=== PATIENT | female | born 1970 | race Caucasian/White ===

== ENCOUNTER → 2016-12-23 | Outpatient (CLI) | payer OTHER | END | disposition home or self-care (01) | LOC: YCFC.O 10:27 | PROVIDERS: ATTEND Nurse Practitioner Family | DX: E10.9 Type 1 diabetes mellitus without complications (principal) ==

== ENCOUNTER → 2017-11-23 | Outpatient (CLI) | payer OTHER | LOC: YCFC.O 09:34 | PROVIDERS: ATTEND Nurse Practitioner Family | DX: E10.9 Type 1 diabetes mellitus without complications (principal); I10 Essential (primary) hypertension; D64.9 Anemia, unspecified; Z13.220 Encounter for screening for lipoid disorders ==

== ENCOUNTER → 2018-01-01 | Outpatient (CLI) | payer OTHER ==
--- NOTE | 2018-01-01 11:32 | RAD ---
EXAM DESCRIPTION: Ankle,Right 3 Views CLINICAL HISTORY: 48 years Female, PRESSURE ULCER OF RIGHT ANKLE COMPARISON: January 23, 2014 FINDINGS: The distal right fibula is surgically absent. There is a plate and screw fixation device over the lateral aspect of the right tibia distally. Several of the screws appear fractured with backing out of several of the screws in the calcaneus. There is diffuse sclerosis and fragmentation of the calcaneus and possibly also the talus, only partially visualized. The subtalar and tibiotalar joints are not well visualized. No soft tissue gas is seen. IMPRESSION: Postoperative changes in the right ankle including a plate and screw fixation device over the right tibia and hindfoot laterally. Fragmentation and collapse of the right hindfoot involving the calcaneus, talus and tibial plafond is noted with multiple fractured orthopedic screws. Differential considerations include AVN or infection. Orthopedic consultation is recommended. The ordering practitioner was paged by me through the radiology clinical services consultant regarding these findings at the time of this dictation. Electronically signed by: Giuliano Hutton MD 01/01/2018 11:31 AM CDT
== END ==
LOC: YCFC.O 10:11
PROVIDERS: ATTEND Nurse Practitioner Family
DX: L89.513 Pressure ulcer of right ankle, stage 3 (principal)

== ENCOUNTER 2018-05-30 08:55 | Emergency (ER) | payer OTHER ==
--- NOTE | 2018-05-30 09:19 | ED.PDOC ---
History of Present Illness - General Chief Complaint: Diabetic Complaint Stated Complaint: Vomiting x 7d, slow to respond Time Seen by Provider: 05/30/18 09:18 Source: patient, EMS Exam Limitations: no limitations - History of Present Illness Initial Comments: Lorene Del Angel 48 y/o female with history of DM1 brought by EMS after they were called up by patient family after they visited her at home was found to be weak and lethargic noted to be incontinent of urine.Patient with weak voice stated had intermittent vomiting for the last one week is working out of town. Timing/Duration: other - see hpi Severity: moderate Improving Factors: nothing Worsening Factors: nothing Associated Symptoms: nausea/vomiting Allergies/Adverse Reactions: Allergies Penicillins Allergy (Intermediate, Verified 01/15/14 00:05) Home Medications: Ambulatory Orders HYDROcodone 5MG/APAP 325MG [[place] 5/325] 1 ea PO .Q6 PRN #10 tab 01/15/14 Review of Systems - Review of Systems Constitutional: States: see HPI, weakness EENTM: States: no symptoms reported Respiratory: States: no symptoms reported Cardiology: States: no symptoms reported Gastrointestinal/Abdominal: States: see HPI Genitourinary: States: no symptoms reported Musculoskeletal: States: no symptoms reported Skin: States: no symptoms reported Neurological: States: no symptoms reported Endocrine: States: no symptoms reported Hematologic/Lymphatic: States: no symptoms reported Past Medical History (General) - Patient Medical History Hx Congestive Heart Failure: No Hx Diabetes: Yes Hx MRSA: Yes - Foot 2010; Foot 2211 MRSA Source:: Wound Surgical History: other - foot surgery - Social History Hx Alcohol Use: No Hx Depression: No Feels Threatened In Home Enviroment: No Hx Physical Abuse: No Hx Emotional Abuse: No - Female History Patient : No Family Medical History - Family History Mother Hx Cardiac Disease: Yes - dad Hx Family Diabetes: Yes - multiple family members Hx Family Cancer: Yes - dad-lungs Physical Exam - Physical Exam General Appearance: No apparent distress, Lethargic Eye Exam: right normal, left other - blind left eye Ears, Nose, Throat: hearing grossly normal, normal ENT inspection, normal pharynx, other - dry oral mucosa Neck: non-tender, full range of motion, supple, normal inspection Respiratory: lungs clear, normal breath sounds, no respiratory distress Cardiovascular/Chest: normal peripheral pulses, no gallop, no murmur, tachycardia Peripheral Pulses: dorsalis pedis,right: 1+, dorsalis pedis,left: 1+ Gastrointestinal/Abdominal: soft, no organomegaly, no pulsatile mass, distended, tenderness - no peritoneal signs Back Exam: normal inspection Extremity: no pedal edema, no calf tenderness, other - 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 Skin Exam: normal color, warm/dry Progress - Progress Progress: 05/30/18 10:01 Vital Signs - 8 hr 05/30/18 08:55 Temperature 98.0 F Pulse Rate [ 122 H Apical] Respiratory 36 H Rate Blood Pressure 113/68 [Left Arm] O2 Sat by Pulse 97 Oximetry - Results/Orders Results/Orders: Vital Signs - 8 hr 05/30/18 05/30/18 05/30/18 08:55 09:45 10:55 Temperature 98.0 F Pulse Rate [ 122 H 118 H Apical] Respiratory 36 H 27 H 27 H Rate Blood Pressure 113/68 121/66 [Left Arm] O2 Sat by Pulse 97 95 Oximetry 05/30/18 05/30/18 10:57 11:19 Temperature Pulse Rate [ 109 H Apical] Respiratory 26 H 32 H Rate Blood Pressure 130/70 [Left Arm] O2 Sat by Pulse 100 Oximetry 05/30/18 09:30 EKG STAT 05/30/18 09:45 BLOOD CULTURE Stat 05/30/18 10:54 Capnography RTQ6 05/30/18 11:30 Insulin, Reg.(Human) [HumuLIN R] 250 units Sodium Chl 0.9% 250Ml (Georgette) [NS 250ml (GEORGETTE)] 247.5 ml IVPB Q12H 05/30/18 13:00 GLUCOSE,RANDOM Stat Laboratory Results - last 24 hr 05/30/18 05/30/18 05/30/18 09:19 09:27 09:27 WBC 14.6 H RBC 4.42 Hgb 13.3 Hct 43.6 MCV 98.6 MCH 30.0 MCHC 30.5 L RDW 15.7 H Plt Count 335 MPV 9.7 Absolute Neuts (auto) 12.70 H Absolute Lymphs (auto) 0.70 L Absolute Monos (auto) 1.20 H Absolute Eos (auto) 0.00 Absolute Basos (auto) 0.00 Neutrophils % 87.2 H Lymphocytes % 4.5 L Monocytes % 8.0 Eosinophils % 0.0 L Basophils % 0.3 PT 11.3 H INR 1.13 PTT (SP) 21.9 pCO2 32 pO2 117 H* HCO3 18.4 ABG pH 7.380 ABG O2 Saturation 53.4 L* ABG Base Excess -5.5 ABG Deoxyhemoglobin 45.4 H Oxyhemoglobin % 52.0 L Carboxyhemoglobin % 0.1 L Methemoglobin % Sat 2.5 H Calc Total Hemoglobin 8.7 L Sodium 146 H Potassium 5.8 H Chloride 104 Carbon Dioxide 22 Anion Gap 25.8 H BUN 105 H* Creatinine 2.52 H BUN/Creatinine Ratio 41.7 H Random Glucose 759 H* Serum Osmolality Not Reportable Lactic Acid 2.4 H* Uric Acid Calcium 13.0 H* Phosphorus Magnesium 3.1 H Total Bilirubin 1.3 H Direct Bilirubin 0.3 H Indirect Bilirubin 1.0 H AST 12 ALT 11 Alkaline Phosphatase 98 Creatine Kinase 29 CK-MB (CK-2) 0.6 CK-MB (CK-2) % Not Reportable Troponin I 0.02 Serum Total Protein 7.9 Albumin 3.1 L Globulin Albumin/Globulin Ratio Lipase 19 L Serum HCG, Qual Urine Color Urine Appearance Urine pH Ur Specific [place] Urine Protein Urine Glucose (UA) Urine Ketones Urine Blood Urine Nitrite Urine Bilirubin Urine Urobilinogen Ur Leukocyte Esterase Urine RBC Urine WBC Ur Epithelial Cells Urine Bacteria Urine HCG, Qual Serum Ketones 05/30/18 05/30/18 05/30/18 09:27 09:32 09:54 WBC RBC Hgb Hct MCV MCH MCHC RDW Plt Count MPV Absolute Neuts (auto) Absolute Lymphs (auto) Absolute Monos (auto) Absolute Eos (auto) Absolute Basos (auto) Neutrophils % Lymphocytes % Monocytes % Eosinophils % Basophils % PT INR PTT (SP) pCO2 pO2 HCO3 ABG pH ABG O2 Saturation ABG Base Excess ABG Deoxyhemoglobin Oxyhemoglobin % Carboxyhemoglobin % Methemoglobin % Sat Calc Total Hemoglobin Sodium Potassium Chloride Carbon Dioxide Anion Gap BUN Creatinine BUN/Creatinine Ratio Random Glucose Serum Osmolality Lactic Acid Uric Acid 20.1 H* Calcium Phosphorus 3.5 Magnesium Total Bilirubin Direct Bilirubin Indirect Bilirubin AST ALT Alkaline Phosphatase Creatine Kinase CK-MB (CK-2) CK-MB (CK-2) % Troponin I Serum Total Protein Albumin Globulin Albumin/Globulin Ratio Lipase Serum HCG, Qual Cancelled Urine Color Yellow Urine Appearance Clear Urine pH 5.5 Ur Specific [place] 1.015 Urine Protein 30 Urine Glucose (UA) >=1000 H Urine Ketones 40 H Urine Blood Large H Urine Nitrite Negative Urine Bilirubin Negative Urine Urobilinogen 0.2 Ur Leukocyte Esterase Negative Urine RBC 5-10 H Urine WBC 0 Ur Epithelial Cells 0 Urine Bacteria Rare Urine HCG, Qual Negative Serum Ketones 05/30/18 05/30/18 05/30/18 11:14 11:40 11:54 WBC RBC Hgb Hct MCV MCH MCHC RDW Plt Count MPV Absolute Neuts (auto) Absolute Lymphs (auto) Absolute Monos (auto) Absolute Eos (auto) Absolute Basos (auto) Neutrophils % Lymphocytes % Monocytes % Eosinophils % Basophils % PT INR PTT (SP) pCO2 pO2 HCO3 ABG pH ABG O2 Saturation ABG Base Excess ABG Deoxyhemoglobin Oxyhemoglobin % Carboxyhemoglobin % Methemoglobin % Sat Calc Total Hemoglobin Sodium 150 H Potassium 5.0 Chloride 112 H Carbon Dioxide 21 Anion Gap 22.0 H BUN 94 H Creatinine 2.36 H BUN/Creatinine Ratio 39.8 H Random Glucose 653 H* 653 H* Serum Osmolality 358.4 H* Lactic Acid Uric Acid Calcium 12.1 H* Phosphorus Magnesium Total Bilirubin 1.3 H Direct Bilirubin Indirect Bilirubin AST 7 L D ALT 9 L Alkaline Phosphatase 82 Creatine Kinase CK-MB (CK-2) CK-MB (CK-2) % Troponin I Serum Total Protein 6.7 Albumin 2.7 L Globulin 4.0 H Albumin/Globulin Ratio 0.7 L Lipase Serum HCG, Qual Urine Color Urine Appearance Urine pH Ur Specific [place] Urine Protein Urine Glucose (UA) Urine Ketones Urine Blood Urine Nitrite Urine Bilirubin Urine Urobilinogen Ur Leukocyte Esterase Urine RBC Urine WBC Ur Epithelial Cells Urine Bacteria Urine HCG, Qual Serum Ketones Small 05/30/18 12:26 WBC RBC Hgb Hct MCV MCH MCHC RDW Plt Count MPV Absolute Neuts (auto) Absolute Lymphs (auto) Absolute Monos (auto) Absolute Eos (auto) Absolute Basos (auto) Neutrophils % Lymphocytes % Monocytes % Eosinophils % Basophils % PT INR PTT (SP) pCO2 pO2 HCO3 ABG pH ABG O2 Saturation ABG Base Excess ABG Deoxyhemoglobin Oxyhemoglobin % Carboxyhemoglobin % Methemoglobin % Sat Calc Total Hemoglobin Sodium Potassium Chloride Carbon Dioxide Anion Gap BUN Creatinine BUN/Creatinine Ratio Random Glucose Serum Osmolality Lactic Acid 1.2 Uric Acid Calcium Phosphorus Magnesium Total Bilirubin Direct Bilirubin Indirect Bilirubin AST ALT Alkaline Phosphatase Creatine Kinase CK-MB (CK-2) CK-MB (CK-2) % Troponin I Serum Total Protein Albumin Globulin Albumin/Globulin Ratio Lipase Serum HCG, Qual Urine Color Urine Appearance Urine pH Ur Specific [place] Urine Protein Urine Glucose (UA) Urine Ketones Urine Blood Urine Nitrite Urine Bilirubin Urine Urobilinogen Ur Leukocyte Esterase Urine RBC Urine WBC Ur Epithelial Cells Urine Bacteria Urine HCG, Qual Serum Ketones - EKG/XRAY/CT EKG: Sinus, Tachy, no ST T wave changes Comments: HR-117 XRAY: foot right-osteopenia ? osteomyelitis - no acute abnormalities CT Ordered: Yes - abd/p-no acuteabnormalities Departure - Departure Clinical Impression: Dehydration with hypernatremia, Hypercalcemia Nausea & vomiting Qualifiers: Vomiting type: unspecified Vomiting Intractability: non-intractable Qualified Code(s): R11.2 - Nausea with vomiting, unspecified Acute renal failure (ARF) Qualifiers: Acute renal failure type: unspecified Qualified Code(s): N17.9 - Acute kidney failure, unspecified Diabetes Qualifiers: Diabetes mellitus type: type 1 Diabetes mellitus complication status: with kidney complications Diabetes mellitus complication detail: with other kidney complication Qualified Code(s): E10.29 - Type 1 diabetes mellitus with other diabetic kidney complication Time of Disposition: 13:33 Disposition: Transfer to Hospital Condition: Fair Departure Forms: Patient Portal Self Enrollment Referrals: Bita Veloz NP [Primary Care Provider] - 1-2 Weeks Home Medications: Ambulatory Orders HYDROcodone 5MG/APAP 325MG [[place] 5/325] 1 ea PO .Q6 PRN #10 tab 01/15/14 Transfer to Outside Facility - Transfer Information Accepting Provider:: [place]/Mariusz GARCIA Md Accepting Facility: [facility] Reason for Transfer: required specialist not available - physical education specialist
[2018-05-30] MEDS ORDERED: SODIUM CHLORIDE 0.9% 1000ML 1,000 ML ONE (10:22)
[2018-05-30] MEDS ORDERED: SODIUM CHLORIDE 0.9% 1000ML 1,000 ML IVS ONE ×3 (10:27→10:28)
--- NOTE | 2018-05-30 11:03 | RAD ---
EXAM DESCRIPTION: Chest,1 View CLINICAL HISTORY: lethargy COMPARISON: None. FINDINGS: Cardiac silhouette is within normal limits. There is no focal parenchymal or pleural disease. Visualized osseous structures are within normal limits. IMPRESSION: No evidence of acute cardiopulmonary disease. Electronically signed by: Markus Rajput 05/30/2018 11:02 AM [facility]
--- NOTE | 2018-05-30 11:06 | RAD ---
EXAM DESCRIPTION: Foot,Right 2 Views CLINICAL HISTORY: lethargy COMPARISON: None FINDINGS: 2 view(s) submitted. There is diffuse osteopenia. Extensive postsurgical changes and hardware are present. Two of the surgical screws have the proximal threads partially exposed. Clinical correlation with desired position of the screws is recommended. There is dysmorphology of the tarsal bones with regions of decreased attenuation and although this may reflect disuse osteopenia, the possibility of osteomyelitis is not entirely excluded radiographically. No acute fracture is seen. IMPRESSION: Partial exposure of the threads of two of the surgical screws and nonspecific lucencies of portions of the talus bones as described. Osteomyelitis is not entirely excluded. Clinical correlation is recommended. Electronically signed by: Markus Rajput 05/30/2018 11:05 AM [facility]
--- NOTE | 2018-05-30 11:18 | CT ---
EXAM DESCRIPTION: Abdoment/Pelvis w/o Contrast CLINICAL HISTORY: abdominal distention COMPARISON: None Available. TECHNIQUE: Contiguous axial images of the abdomen and pelvis were obtained followed by reconstruction images. This exam was performed according to our departmental dose-optimization program, which includes automated exposure control, adjustment of the mA and/or kV according to patient size and/or use of iterative reconstruction technique. FINDINGS: There is a 2 mm nonobstructive right renal stone. Right renal collecting system is mildly enlarged but no stone is seen in the right ureter. Perez catheter is in the urinary bladder which is collapsed. Punctate calcification in the spleen could be due to prior granulomatous infection. There is mild anasarca and mild enlargement of inguinal lymph nodes. Trace fluid is in the pelvis. There is mild diffuse soft tissue stranding of the mesentery. There are probable postsurgical changes at the GE junction. The gallbladder is unremarkable by CT criteria. Adrenal glands are within normal limits. Aorta is of normal caliber and tapering. There is no free fluid in the abdomen or pelvis. There is no bowel obstruction. The appendix is within normal limits. There is no pericecal inflammation. IMPRESSION: No clear etiology for abdominal distention is seen. No evidence of bowel obstruction or bowel wall edema. Small amount of fluid in the pelvis and anasarca with mild soft tissue stranding of the mesentery could reflect inflammation or other etiologies such as hypoproteinemia. Clinical correlation will be helpful. Electronically signed by: Markus Rajput 05/30/2018 11:17 AM [facility]
[2018-05-30] MEDS ORDERED: INSULIN, REG.(HUMAN) 250 UNITS in SODIUM CHL 0.9% 250ML (AVIVA) 247.5 ML IVPB SCH ×2 (11:30)
[2018-05-30] MEDS ORDERED: INSULIN, REG.(HUMAN) 100 U/ML VIAL ONE (11:46)
[2018-05-30] MEDS ORDERED: SODIUM CHL 0.9% 250ML (AVIVA) 250 ML IVPB ONE (11:46)
[2018-05-30 14:04] VITALS: BP 109/59; TEMP 97.8; O2SAT 99
== END 2018-05-30 14:19 | disposition short-term general hospital (02) ==
LOC: ER 08:55
DX: E10.29 Type 1 diabetes mellitus with other diabetic kidney complication (principal); N17.9 Acute kidney failure, unspecified; R11.2 Nausea with vomiting, unspecified; E86.0 Dehydration; E87.0 Hyperosmolality and hypernatremia; E83.52 Hypercalcemia; Z88.0 Allergy status to penicillin
CPT/HCPCS: 36415; 36600; 71045; 73620; 74176; 80048; 80053; 80076; 81001; 81025; 82009; 82550; 82553; 82803; 82805; 82947; 83605; 83690; 84100; 84484; 84550; 85025; 85610; 85730; 87040; 93005; 94770; J7030

== ENCOUNTER 2018-06-21 09:53 | Emergency (ER) | payer OTHER ==
[2018-06-21] MEDS ORDERED: NALOXONE HCL INJ 1 MG/ML SYG IV ONE (09:58)
[2018-06-21] MEDS ORDERED: NALOXONE HCL INJ 1 MG/ML SYG ONE (09:59)
[2018-06-21] MEDS ORDERED: SUCCINYLCHOLINE CHLORIDE 200 MG/10 ML VIAL ONE (10:01)
[2018-06-21] MEDS ORDERED: ROCURONIUM BROMIDE 10 MG/ML VIAL ONE (10:01)
[2018-06-21] MEDS ORDERED: ROCURONIUM BROMIDE 10 MG/ML VIAL IV ONE ×3 (10:08→11:35)
--- NOTE | 2018-06-21 10:36 | RAD ---
EXAM DESCRIPTION: Chest,1 View CLINICAL HISTORY: 48 years Female, intubation COMPARISON: Previous study May 30, 2018 TECHNIQUE: AP portable chest. FINDINGS: Heart size is large with increased pulmonary vascularity consistent with volume overload or congestive failure. No focal consolidating infiltrate to suggest pneumonia. Endotracheal tube tip is at the level of the clavicles approximately 4.2 cm above the lolis. Central line from the right upper extremity is present with tip low in the right heart approximately 5.5 cm below the expected location of the SVC-right atrial junction. No pulmonary mass or worrisome nodule. No pneumothorax or pleural effusion. Bones are unremarkable. In the upper abdomen, the stomach appears markedly distended. No NG tube is seen. IMPRESSION: Large heart with increased vascularity consistent with volume overload or congestive failure. Endotracheal tube tip at the level of clavicles. Distended stomach. Right central line tip low in the right heart. Electronically signed by: Syed Caldera MD 06/21/2018 10:34 AM [facility]
[2018-06-21 11:11] VITALS: O2SAT 99
--- NOTE | 2018-06-21 11:30 | ED.PDOC ---
History of Present Illness - General Chief Complaint: Diabetic Complaint Stated Complaint: Unresponsive, low BS Time Seen by Provider: 06/21/18 10:31 Source: family, EMS Exam Limitations: clinical condition - History of Present Illness Initial Comments: Patient presents by EMS unresponsive. A family member found her at home. It is unknown how long she had been down. She is IDDM and her FSBG was in the 300s upon arrival by EMS. It was 161 here. She is currently being treated for RLE "infection" that the family thinks was "in the bone". Unknown antibiotic. She was in the ICU last week for the infection. No other history is available. Timing/Duration: unsure Severity: severe Improving Factors: nothing Worsening Factors: nothing Associated Symptoms: other - see hpi Allergies/Adverse Reactions: Allergies Penicillins Allergy (Intermediate, Verified 01/15/14 00:05) Home Medications: Ambulatory Orders HYDROcodone 5MG/APAP 325MG [[place] 5/325] 1 ea PO .Q6 PRN #10 tab 01/15/14 Ferrous Sulfate [Iron] 65 mg PO DAILY 06/21/18 Ondansetron HCl 4 mg PO Q8H PRN 06/21/18 Ranitidine HCl 150 mg PO BID 06/21/18 Verapamil HCl [Verapamil Hydrochloride] 240 mg PO DAILY 06/21/18 Review of Systems - Review of Systems Unable to Obtain Due To: condition, intubated Past Medical History (General) - Patient Medical History Hx Stroke: No Hx Congestive Heart Failure: No Hx Hypertension: Yes Hx Thyroid Disease: No Hx Diabetes: Yes Hx MRSA: Yes - Foot 2010; Foot 2211 MRSA Source:: Wound - Vaccination History Hx Influenza Vaccination: No Hx Pneumococcal Vaccination: No - Social History Hx Tobacco Use: No Hx Alcohol Use: No Hx Depression: No Hx Physical Abuse: No Hx Emotional Abuse: No - Female History Patient : No Family Medical History - Family History Mother Family History: Unknown Hx Cardiac Disease: Yes - dad Hx Family Diabetes: Yes - multiple family members Hx Family Cancer: Yes - dad-lungs Physical Exam - Physical Exam General Appearance: Other - UNRESPONSIVE Eye Exam: right other - sluggisn, left abnormal pupil - non-reactive Ears, Nose, Throat: normal ENT inspection Neck: non-tender, full range of motion, supple Respiratory: lungs clear, normal breath sounds Cardiovascular/Chest: normal peripheral pulses, tachycardia Gastrointestinal/Abdominal: normal bowel sounds Neurologic: other - GCS 7 Skin Exam: normal color Progress - Progress Progress: 06/21/18 11:32 RSI initiated with 40 mg IV Rocuronium. 5 mg pushes used to maintain. Patient accepted for admission to [facility] by Dr. Denson. Vital signs stable upon leaving. Mildly tachycardic. Departure - Departure Clinical Impression: Unresponsive Disposition: Transfer to Hospital Condition: Serious Departure Forms: ED Discharge - Pt. Copy, Patient Portal Self Enrollment Activity: other - as per hospitalist Referrals: Bita Veloz NP [Primary Care Provider] - 1-2 Weeks Home Medications: Ambulatory Orders HYDROcodone 5MG/APAP 325MG [[place] 5/325] 1 ea PO .Q6 PRN #10 tab 01/15/14 Ferrous Sulfate [Iron] 65 mg PO DAILY 06/21/18 Ondansetron HCl 4 mg PO Q8H PRN 06/21/18 Ranitidine HCl 150 mg PO BID 06/21/18 Verapamil HCl [Verapamil Hydrochloride] 240 mg PO DAILY 06/21/18
[2018-06-21] MEDS ORDERED: SODIUM CHLORIDE 0.9% 1000ML 1,000 ML ONE (11:38)
[2018-06-21] MEDS ORDERED: SODIUM CHLORIDE 0.9% 1000ML 1,000 ML IVS ONE (11:40)
[2018-06-21 12:17] VITALS: BP 154/80; TEMP 96.9
== END 2018-06-21 12:00 | disposition short-term general hospital (02) ==
LOC: ER 09:53
DX: R40.20 Unspecified coma (principal); E11.9 Type 2 diabetes mellitus without complications; I10 Essential (primary) hypertension; Z88.0 Allergy status to penicillin; Z79.4 Long term (current) use of insulin
CPT/HCPCS: 36415; 36416; 36600; 71045; 80048; 81001; 82550; 82553; 82803; 82805; 82948; 84484; 85025; 85610; 85730; 93005; 94002; 94770; J2310; J7030

== ENCOUNTER 2018-06-30 18:11 | Inpatient (IN) | payer OTHER ==
[2018-06-30] MEDS ORDERED: KCL 20 MEQ/NS 1,000 ML IVS PRN (19:42)
[2018-06-30] MEDS ORDERED: INSULIN, REG.(HUMAN) 100 U/ML VIAL SUBCU ONE (19:43)
[2018-06-30] MEDS ORDERED: ONDANSETRON INJ 4 MG/2 ML VIAL IV ONE (20:45)
[2018-06-30] MEDS ORDERED: INSULIN DETEMIR 100 UNITS/ML PEN SUBCU ONE (22:34)
--- NOTE | 2018-06-30 22:34 | RAD ---
EXAM DESCRIPTION: Chest,1 View CLINICAL HISTORY: Altered mental status, edema COMPARISON: None Available. TECHNIQUE: Single upright portable AP view of the chest FINDINGS: Cardiac silhouette shows borderline cardiomegaly. Pulmonary vascularity is within normal limits. Lungs show no confluent infiltrates. Bilateral costophrenic angles are sharp. There is no pneumothorax. No acute osseous abnormality. IMPRESSION: 1. Borderline cardiomegaly without silvia congestive heart failure. 2. Lungs show no confluent infiltrates. Electronically signed by: Tavo Elam MD 06/30/2018 6:47 PM ONCOLOGY PHYSICIAN ASSISTANT
[2018-06-30] MEDS ORDERED: INSULIN, REG.(HUMAN) 250 UNITS in SODIUM CHL 0.9% 250ML (AVIVA) 247.5 ML IVPB SCH ×4 (23:00→23:56)
[2018-06-30] MEDS ORDERED: KCL 30MEQ/D5 1/2NS 1,000 ML IVS ONE (23:56)
[2018-07-01] MEDS ORDERED: MAGNESIUM SULFATE PREMIX 2GM 2 GM in PREMIX BAG 1 BAG IVPB ONE ×2 (03:21→09:24)
[2018-07-01] MEDS ORDERED: MAGNESIUM SULFATE PREMIX 2GM 50 ML IVPB ONE ×2 (03:33→10:43)
--- NOTE | 2018-07-01 03:50 | ED.PDOC ---
History of Present Illness - General Chief Complaint: Neuro Symptoms/Deficits Stated Complaint: confusion, dizzy Time Seen by Provider: 06/30/18 23:08 Source: patient Exam Limitations: clinical condition - History of Present Illness Initial Comments: The patient is a 48-year-old diabetic female presenting to the emergency room with significant delirium and anasarca. Duration of delirium, which seems to come and go is of uncertain duration. She was apparently having some confusion as far back as possibly a couple of weeks ago. The patient was actually just released from [facility] approximately 4-5 days ago. She had been sent there due to altered mental status with profound hypoglycemia and DKA after having been intubated. The patient had apparently already been taking some IV antibiotics and is continuing to take some IV antibiotics at home administered by herself and family for osteomyelitis of the right ankle that is ongoing in nature. Apparently she was lucid enough to be competent to check herself out of the hospital for 5 days ago [facility]. Since that time is uncertain how compliant she has been with her diabetes medicines or any of her other medicines. Apparently she came home from [facility] significantly swollen already. She has significant anasarca today and she is able to give some medical information reliably but other information is essentially unintelligible. It is doubtful that she has had her insulin appropriately administered for at least the last 2 days. Even as little as after a couple of hours of after arrival here the patient was trying to leave AGAINST MEDICAL ADVICE and had to be told by family that she was going to stay. It appeared based on records that they had actually wanted to keep her longer [facility]. Records from that stay also indicated they did extensive venous Doppler ultrasound due to swelling of the extremities, which were essentially negative. She additionally had had an echocardiogram there that was essentially negative. she also had a head CT there without contrast that was negative. based upon outside records she apparently does have a long-standing baseline sinus tachycardia. she does also convey that she is a patient of Dr. raymundo, and has an appointment scheduled with her in the near future. For the osteomyelitis she apparently takes IV meropenem and IV daptomycin. Timing/Duration: unsure Severity: severe Improving Factors: nothing Worsening Factors: nothing Associated Symptoms: loss of appetite, malaise, weakness Allergies/Adverse Reactions: Allergies Penicillins Allergy (Intermediate, Verified 01/15/14 00:05) Home Medications: Ambulatory Orders HYDROcodone 5MG/APAP 325MG [[place] 5/325] 1 ea PO .Q6 PRN #10 tab 01/15/14 Ferrous Sulfate [Iron] 65 mg PO DAILY 06/21/18 Ondansetron HCl 4 mg PO Q8H PRN 06/21/18 Ranitidine HCl 150 mg PO BID 06/21/18 Verapamil HCl [Verapamil Hydrochloride] 240 mg PO DAILY 06/21/18 Review of Systems - Review of Systems Review of Systems: 07/01/18 03:50 difficult to obtain reliably. Some of the information is obtained from the patient that some of it is also obtained from her friend and her who just arrived back home today. Constitutional: States: malaise, weakness EENTM: States: no symptoms reported Respiratory: States: no symptoms reported Cardiology: States: edema Gastrointestinal/Abdominal: States: no symptoms reported Genitourinary: States: no symptoms reported Musculoskeletal: States: other - chronic pain in multiple places including the low back and the right ankle Skin: States: see HPI Neurological: States: see HPI Endocrine: States: increased thirst All other Systems: No Change from Baseline Past Medical History (General) - Patient Medical History Hx Stroke: Yes Hx of COPD: Yes Hx Congestive Heart Failure: No Hx Hypertension: Yes Hx Thyroid Disease: No Hx Diabetes: Yes Hx Gastroesophageal Reflux: Yes Hx MRSA: Yes - Foot 2010; Foot 2211 MRSA Source:: Wound - Vaccination History Hx Tetanus, Diphtheria Vaccination: - unknown Hx Influenza Vaccination: - unknown Hx Pneumococcal Vaccination: No - Social History Hx Tobacco Use: Yes Hx Alcohol Use: No Hx Depression: No Hx Physical Abuse: No Hx Emotional Abuse: No - Female History Patient : No Family Medical History - Family History Mother Family History: Unknown Hx Cardiac Disease: Yes - dad Hx Family Diabetes: Yes - multiple family members Hx Family Cancer: Yes - dad-lungs Physical Exam - Physical Exam General Appearance: Other - the patient is drowsy and does know that she is at the [place] emergency room and does know why she is here. She is able to relay some information reliably. she has no difficulty protecting her airway. She is responsive to voice. She has gross diffuse anasarca. Eye Exam: bilateral other - near total vision loss from the left eye and still not great vision from the right eye. Ears, Nose, Throat: hearing grossly normal, normal pharynx Neck: non-tender, full range of motion Respiratory: lungs clear, normal breath sounds, no respiratory distress, no accessory muscle use Cardiovascular/Chest: normal peripheral pulses, tachycardia - sinus tachycardia based on telemetry Peripheral Pulses: radial,right: 2+, radial,left: 2+ Gastrointestinal/Abdominal: non tender, soft Rectal Exam: deferred Back Exam: no CVA tenderness Extremity: no calf tenderness, normal capillary refill, pedal edema, other - the patient is missing the first digit of the left foot. Additionally she has significant Charcot deformity of the right foot and ankle. 2 small previous lacerations to that are appear to be healing. Neurologic: straight knife cutter machine II-XII nml as tested, oriented x 3, other - again the patient is oriented 3 but is very drowsy. She does have chronic significant peripheral neuropathy. Skin Exam: pallor Comments: Vital Signs - 24 hr 06/30/18 06/30/18 06/30/18 18:11 19:30 20:00 Temperature 97.3 F L Pulse Rate 121 H Pulse Rate [ 110 H 121 H 120 H Right] Respiratory 22 22 22 Rate Blood Pressure 153/77 154/78 137/72 [left] O2 Sat by Pulse 90 L 96 97 Oximetry 06/30/18 06/30/18 06/30/18 20:30 21:00 21:30 Temperature 98.8 F Pulse Rate 123 H Pulse Rate [ 123 H 123 H 124 H Right] Respiratory 22 22 22 Rate Blood Pressure 146/73 126/64 152/73 [left] O2 Sat by Pulse 97 97 99 Oximetry 06/30/18 06/30/18 06/30/18 22:00 22:30 23:00 Temperature Pulse Rate 123 H Pulse Rate [ 122 H 122 H 123 H Right] Respiratory 22 22 22 Rate Blood Pressure 136/69 126/66 139/66 [left] O2 Sat by Pulse 100 100 99 Oximetry 06/30/18 07/01/18 07/01/18 23:39 00:30 01:30 Temperature 98.5 F 98.5 F Pulse Rate 117 H 117 H 117 H Pulse Rate [ 117 H 123 H 117 H Right] Respiratory 22 22 22 Rate Blood Pressure 124/59 127/57 120/54 [left] O2 Sat by Pulse 98 97 98 Oximetry 07/01/18 07/01/18 02:30 03:32 Temperature Pulse Rate 114 H 112 H Pulse Rate [ 114 H 114 H Right] Respiratory 22 22 Rate Blood Pressure 131/61 121/52 [left] O2 Sat by Pulse 98 98 Oximetry Progress - Progress Progress: 07/01/18 03:55 the patient is a 48-year-old female presenting with delirium, anasarca and DKA. Initial ABG shows a pH of approximately 7.2. She also has a mild lactic acidosis as well. We have tried to minimize additional IV fluids as judiciously as possible but she has still required a couple of liters at this point. The patient has been placed on IV insulin and her blood sugars are improving as well as the anion gap. She seems to be resting more comfortably as well. She is receiving IV magnesium for hypomagnesemia. The patient will have to be admitted for further blood sugar control. Once her diabetes is controlled, then fluid is going to have to be slowly pulled back off. Her albumin is low but at this point I do not believe it is low enough that she will need additional albumin for diuresis, and at least on a spot urine check, she does not appear to be losing that much through the urine. It is possible that the antibiotics that she is receiving IV may also be contributing to her delirium and anasarca, as these can be noted side effects. This may require a further conversation with infectious disease in the coming days if mental status fails to improve and anasarca fails to improve with planned therapy. It is also uncertain how much of the current mental state is still part of a hangover from what may have been a very significant period of hypoglycemia less than 2 weeks ago. I have little doubt that the patient will try to leave as soon as she possibly can, however it would greatly benefit her to stay and get control of these issues or she will likely be right back. at this time at least, family appears to be on board with her staying in receiving more definitive care. 07/01/18 06:42 the patient has been kept here in the emergency room for a more extended period of time in order to treat the diabetic ketoacidosis as insulin drips are not done on the internal medicine floor. The anion gap has closed. Blood sugars are down in the 150s. The patient is mentating a little more clearly. She is however feeling cold at this point due to the IV fluids and the temperature of the emergency room in spite of the blankets. The insulin drip has been discontinued. The IV fluid drip will be discontinued 1 hour after the insulin. She will have received 2.[address] has been deferred at this time as she has just recently had one at [facility] that was negative. She also does not appear to have any new focal neurological deficits and no significant headache. Admit for further care. Obviously if the patient fails to improve or significantly deteriorates or some other unexpected pathology presents itself, then she may require transfer for higher level of care, however at this time I do not see any definitive pathology requiring a higher level of care. given her current findings, I believe tight blood sugar control and gentle diuresis over the next few days is her most likely course for improvement. This will of course require continued compliance from the patient and likely her family. Critical care time spent for DKA with delirium is 1 hour and 40 minutes excluding otherwise billable procedures. - Results/Orders Results/Orders: 06/30/18 18:40 BLOOD CULTURE Stat 06/30/18 19:42 KCl 20 Meq/Ns [NS W/ KCL 20 meq/Liter] 1,000 ml IVS .QD 06/30/18 22:17 Arterial Blood Gas Stat 06/30/18 23:56 Insulin, Reg.(Human) [HumuLIN R] 250 units Sodium Chl 0.9% 250Ml (Georgette) [NS 250ml (GEORGETTE)] 247.5 ml IVPB CONTINUOUS 07/01/18 04:56 KCl 30Meq/D5 1/2Ns [D5 1/2NS W/ KCL 30 meq/Liter] 1,000 ml IVS .QD 07/01/18 06:30 FSBS [GLUCOSE, FINGER STICK] Q1H 07/01/18 Breakfast 2000 Calorie ADA Diet Laboratory Results - last 24 hr 06/30/18 06/30/18 06/30/18 18:23 18:40 18:40 WBC 15.8 H RBC 3.31 L Hgb 9.7 L Hct 31.4 L MCV 94.8 MCH 29.4 MCHC 31.0 L RDW 15.6 H Plt Count 392 MPV 6.7 L Absolute Neuts (auto) Not Reportable Absolute Lymphs (auto) Not Reportable Absolute Monos (auto) Not Reportable Absolute Eos (auto) Not Reportable Neutrophils % Not Reportable Neutrophils % (Manual) 87.0 H Lymphocytes % Not Reportable Lymphocytes % (Manual) 8.0 Monocytes % Not Reportable Monocytes % (Manual) 5.0 Eosinophils % Not Reportable Basophils % Not Reportable Platelet Estimate Normal RBC Morph Comment Plts poli adequate PT INR PTT (SP) D-Dimer, Quantitative Sodium 141 Potassium 4.4 Chloride 106 Carbon Dioxide < 7 L* Anion Gap 32.4 H BUN 16 Creatinine 1.30 BUN/Creatinine Ratio 12.3 POC Glucose 393 H Random Glucose 415 H* Serum Osmolality 299.6 H Lactic Acid Calcium 9.7 Magnesium 1.5 L Total Bilirubin 1.9 H AST 14 ALT 15 Alkaline Phosphatase 145 H Ammonia Creatine Kinase 29 CK-MB (CK-2) 1.8 CK-MB (CK-2) % 6.21 H Troponin I < 0.02 B-Natriuretic Peptide 168.0 H Serum Total Protein 6.8 Albumin 2.8 L Globulin 4.0 H Albumin/Globulin Ratio 0.7 L Amylase 30 Lipase 14 L Urine Color Urine Appearance Urine pH Ur Specific [place] Urine Protein Urine Glucose (UA) Urine Ketones Urine Blood Urine Nitrite Urine Bilirubin Urine Urobilinogen Ur Leukocyte Esterase Urine RBC Urine WBC Ur Epithelial Cells Urine Bacteria Urine HCG, Qual Urine Opiates Screen Urine Barbiturates Ur Phencyclidine Scrn U Amphetamin/Meth Scrn U Benzodiazepines Scrn U Cocaine Metab Screen U Cannabinoids Screen 06/30/18 06/30/18 06/30/18 18:40 18:40 18:40 WBC RBC Hgb Hct MCV MCH MCHC RDW Plt Count MPV Absolute Neuts (auto) Absolute Lymphs (auto) Absolute Monos (auto) Absolute Eos (auto) Neutrophils % Neutrophils % (Manual) Lymphocytes % Lymphocytes % (Manual) Monocytes % Monocytes % (Manual) Eosinophils % Basophils % Platelet Estimate RBC Morph Comment PT 14.4 H INR 1.45 H PTT (SP) 30.8 D-Dimer, Quantitative 4.40 H* Sodium Potassium Chloride Carbon Dioxide Anion Gap BUN Creatinine BUN/Creatinine Ratio POC Glucose Random Glucose Serum Osmolality Lactic Acid 2.9 H* Calcium Magnesium Total Bilirubin AST ALT Alkaline Phosphatase Ammonia 23 Creatine Kinase CK-MB (CK-2) CK-MB (CK-2) % Troponin I B-Natriuretic Peptide Serum Total Protein Albumin Globulin Albumin/Globulin Ratio Amylase Lipase Urine Color Urine Appearance Urine pH Ur Specific [place] Urine Protein Urine Glucose (UA) Urine Ketones Urine Blood Urine Nitrite Urine Bilirubin Urine Urobilinogen Ur Leukocyte Esterase Urine RBC Urine WBC Ur Epithelial Cells Urine Bacteria Urine HCG, Qual Urine Opiates Screen Urine Barbiturates Ur Phencyclidine Scrn U Amphetamin/Meth Scrn U Benzodiazepines Scrn U Cocaine Metab Screen U Cannabinoids Screen 06/30/18 06/30/18 06/30/18 20:30 21:30 22:22 WBC RBC Hgb Hct MCV MCH MCHC RDW Plt Count MPV Absolute Neuts (auto) Absolute Lymphs (auto) Absolute Monos (auto) Absolute Eos (auto) Neutrophils % Neutrophils % (Manual) Lymphocytes % Lymphocytes % (Manual) Monocytes % Monocytes % (Manual) Eosinophils % Basophils % Platelet Estimate RBC Morph Comment PT INR PTT (SP) D-Dimer, Quantitative Sodium Potassium Chloride Carbon Dioxide Anion Gap BUN Creatinine BUN/Creatinine Ratio POC Glucose 355 H 287 H 274 H Random Glucose Serum Osmolality Lactic Acid Calcium Magnesium Total Bilirubin AST ALT Alkaline Phosphatase Ammonia Creatine Kinase CK-MB (CK-2) CK-MB (CK-2) % Troponin I B-Natriuretic Peptide Serum Total Protein Albumin Globulin Albumin/Globulin Ratio Amylase Lipase Urine Color Urine Appearance Urine pH Ur Specific [place] Urine Protein Urine Glucose (UA) Urine Ketones Urine Blood Urine Nitrite Urine Bilirubin Urine Urobilinogen Ur Leukocyte Esterase Urine RBC Urine WBC Ur Epithelial Cells Urine Bacteria Urine HCG, Qual Urine Opiates Screen Urine Barbiturates Ur Phencyclidine Scrn U Amphetamin/Meth Scrn U Benzodiazepines Scrn U Cocaine Metab Screen U Cannabinoids Screen 06/30/18 06/30/18 06/30/18 22:27 22:27 22:40 WBC RBC Hgb Hct MCV MCH MCHC RDW Plt Count MPV Absolute Neuts (auto) Absolute Lymphs (auto) Absolute Monos (auto) Absolute Eos (auto) Neutrophils % Neutrophils % (Manual) Lymphocytes % Lymphocytes % (Manual) Monocytes % Monocytes % (Manual) Eosinophils % Basophils % Platelet Estimate RBC Morph Comment PT INR PTT (SP) D-Dimer, Quantitative Sodium Potassium Chloride Carbon Dioxide Anion Gap BUN Creatinine BUN/Creatinine Ratio POC Glucose Random Glucose Serum Osmolality Lactic Acid Calcium Magnesium Total Bilirubin AST ALT Alkaline Phosphatase Ammonia Creatine Kinase CK-MB (CK-2) CK-MB (CK-2) % Troponin I B-Natriuretic Peptide Serum Total Protein Albumin Globulin Albumin/Globulin Ratio Amylase Lipase Urine Color Yellow Urine Appearance Clear Urine pH 5.5 Ur Specific [place] 1.020 Urine Protein 30 Urine Glucose (UA) 500 H Urine Ketones >=160 Urine Blood Trace-lysed H Urine Nitrite Negative Urine Bilirubin Negative Urine Urobilinogen 0.2 Ur Leukocyte Esterase Negative Urine RBC 0 Urine WBC 0 Ur Epithelial Cells 1-3 Urine Bacteria 0 Urine HCG, Qual Negative Urine Opiates Screen Negative Urine Barbiturates Negative Ur Phencyclidine Scrn Negative U Amphetamin/Meth Scrn Negative U Benzodiazepines Scrn Negative U Cocaine Metab Screen Negative U Cannabinoids Screen Negative 06/30/18 07/01/18 07/01/18 23:25 00:30 01:30 WBC RBC Hgb Hct MCV MCH MCHC RDW Plt Count MPV Absolute Neuts (auto) Absolute Lymphs (auto) Absolute Monos (auto) Absolute Eos (auto) Neutrophils % Neutrophils % (Manual) Lymphocytes % Lymphocytes % (Manual) Monocytes % Monocytes % (Manual) Eosinophils % Basophils % Platelet Estimate RBC Morph Comment PT INR PTT (SP) D-Dimer, Quantitative Sodium 143 Potassium 3.5 L D Chloride 112 H Carbon Dioxide 12 L* D Anion Gap 22.5 H BUN 16 Creatinine 1.25 BUN/Creatinine Ratio 12.8 POC Glucose 204 H 215 H Random Glucose 246 H D Serum Osmolality 294.4 Lactic Acid Calcium 9.3 Magnesium Total Bilirubin AST ALT Alkaline Phosphatase Ammonia Creatine Kinase CK-MB (CK-2) CK-MB (CK-2) % Troponin I B-Natriuretic Peptide Serum Total Protein Albumin Globulin Albumin/Globulin Ratio Amylase Lipase Urine Color Urine Appearance Urine pH Ur Specific [place] Urine Protein Urine Glucose (UA) Urine Ketones Urine Blood Urine Nitrite Urine Bilirubin Urine Urobilinogen Ur Leukocyte Esterase Urine RBC Urine WBC Ur Epithelial Cells Urine Bacteria Urine HCG, Qual Urine Opiates Screen Urine Barbiturates Ur Phencyclidine Scrn U Amphetamin/Meth Scrn U Benzodiazepines Scrn U Cocaine Metab Screen U Cannabinoids Screen 07/01/18 07/01/18 07/01/18 02:30 03:30 04:50 WBC RBC Hgb Hct MCV MCH MCHC RDW Plt Count MPV Absolute Neuts (auto) Absolute Lymphs (auto) Absolute Monos (auto) Absolute Eos (auto) Neutrophils % Neutrophils % (Manual) Lymphocytes % Lymphocytes % (Manual) Monocytes % Monocytes % (Manual) Eosinophils % Basophils % Platelet Estimate RBC Morph Comment PT INR PTT (SP) D-Dimer, Quantitative Sodium Potassium Chloride Carbon Dioxide Anion Gap BUN Creatinine BUN/Creatinine Ratio POC Glucose 236 H 185 H 143 H Random Glucose Serum Osmolality Lactic Acid Calcium Magnesium Total Bilirubin AST ALT Alkaline Phosphatase Ammonia Creatine Kinase CK-MB (CK-2) CK-MB (CK-2) % Troponin I B-Natriuretic Peptide Serum Total Protein Albumin Globulin Albumin/Globulin Ratio Amylase Lipase Urine Color Urine Appearance Urine pH Ur Specific [place] Urine Protein Urine Glucose (UA) Urine Ketones Urine Blood Urine Nitrite Urine Bilirubin Urine Urobilinogen Ur Leukocyte Esterase Urine RBC Urine WBC Ur Epithelial Cells Urine Bacteria Urine HCG, Qual Urine Opiates Screen Urine Barbiturates Ur Phencyclidine Scrn U Amphetamin/Meth Scrn U Benzodiazepines Scrn U Cocaine Metab Screen U Cannabinoids Screen 07/01/18 07/01/18 05:32 05:32 WBC RBC Hgb Hct MCV MCH MCHC RDW Plt Count MPV Absolute Neuts (auto) Absolute Lymphs (auto) Absolute Monos (auto) Absolute Eos (auto) Neutrophils % Neutrophils % (Manual) Lymphocytes % Lymphocytes % (Manual) Monocytes % Monocytes % (Manual) Eosinophils % Basophils % Platelet Estimate RBC Morph Comment PT INR PTT (SP) D-Dimer, Quantitative Sodium 143 Potassium 3.4 L Chloride 114 H Carbon Dioxide 19 L D Anion Gap 13.4 BUN 16 Creatinine 0.96 BUN/Creatinine Ratio 16.7 POC Glucose 152 H Random Glucose 142 H D Serum Osmolality 288.6 Lactic Acid Calcium 9.7 Magnesium Total Bilirubin AST ALT Alkaline Phosphatase Ammonia Creatine Kinase CK-MB (CK-2) CK-MB (CK-2) % Troponin I B-Natriuretic Peptide Serum Total Protein Albumin Globulin Albumin/Globulin Ratio Amylase Lipase Urine Color Urine Appearance Urine pH Ur Specific [place] Urine Protein Urine Glucose (UA) Urine Ketones Urine Blood Urine Nitrite Urine Bilirubin Urine Urobilinogen Ur Leukocyte Esterase Urine RBC Urine WBC Ur Epithelial Cells Urine Bacteria Urine HCG, Qual Urine Opiates Screen Urine Barbiturates Ur Phencyclidine Scrn U Amphetamin/Meth Scrn U Benzodiazepines Scrn U Cocaine Metab Screen U Cannabinoids Screen EKG shows sinus tachycardia at a rate of 120 bpm. She does have some left atrial dilation. There is right axis deviation. Borderline R-wave progression. Normal QT interval. No definitive ST segment changes or T-wave changes ind icative of acute ischemia. Chest x-ray shows no overt infiltrate or fluid overload. Departure - Departure Clinical Impression: Lactic acidosis, Delirium, Hypomagnesemia DKA, type 1 Qualifiers: Diabetes mellitus complication detail: without coma Qualified Code(s): E10.10 - Type 1 diabetes mellitus with ketoacidosis without coma Chronic osteomyelitis involving ankle and foot Qualifiers: Laterality: right Qualified Code(s): M86.671 - Other chronic osteomyelitis, right ankle and foot Disposition: Admit Patient Condition: Serious Referrals: Bita Veloz, PRINCIPAL STATISTICAL SCIENTIST [Primary Care Provider] - 1-2 Weeks Home Medications: Ambulatory Orders HYDROcodone 5MG/APAP 325MG [[place] 5/325] 1 ea PO .Q6 PRN #10 tab 01/15/14 Ferrous Sulfate [Iron] 65 mg PO DAILY 06/21/18 Ondansetron HCl 4 mg PO Q8H PRN 06/21/18 Ranitidine HCl 150 mg PO BID 06/21/18 Verapamil HCl [Verapamil Hydrochloride] 240 mg PO DAILY 06/21/18 Decision To Admit - Decistion To Admit Decision to Admit Reason: Medical Nature Decision to Admit Date: 07/01/18 Decision to Admit Time: 06:51
[2018-07-01] MEDS: KCL 30MEQ/D5 1/2NS 1,000 ML IVS PRN ×2 (04:57→11:20)
[2018-07-01] MEDS ORDERED: POTASSIUM CHLORIDE ELIXIR 20 MEQ/15 ML UD PO ONE (06:10)
--- NOTE | 2018-07-01 07:55 | HP ---
SUPERVISING PHYSICIAN: Dakota Yang M.D. CHIEF COMPLAINT: Neurologic symptoms with confusion. HISTORY OF PRESENT ILLNESS: This is a 48 year-old diabetic female that came to the Emergency Room with significant delirium and anasarca. According to her , the delirium has been worse in the last 6 days, but it initially started about a month ago. The patient was actually just released from [facility] about 6 days ago. She was sent there due to altered mental status and she had diabetic ketoacidosis. She also had acute respiratory failure and was intubated. She has been diagnosed with osteomyelitis of the right ankle that is ongoing in nature and had been taking some Daptomycin and Merrem as an outpatient. She has been followed by Dr. Moyer, Infectious Diseases doctor in [place]. Dr. Moyer saw her in the hospital and continued her antibiotics. According to her , she threatened to leave against medical advice at [facility]. They wanted to keep her longer but at some point they actually discharged her. Her records indicate that they had Doppler ultrasounds due to swelling of the extremities. They were essentially negative. She also had an echocardiogram that was essentially negative. She had a head CT there without contrast. It was negative. Also, according to old records, she had based on sinus tachycardia She has also had some hallucinations and was accusing her family of trying to kill her, and according to a close friend as well as her , until approximately a month ago she took care of herself as well as her son who is in a wheelchair. Although they did admit that her diabetic control has been poor, she was diagnosed with type 1 diabetes in 1971. She initially came to the Emergency Room. She was talking in incomprehensible sentences. They could get no history from her. Initially her vital signs showed temperature 97.3 with heart rate of 121, blood pressure 153/77, respiratory rate 22 and O2 sats were 90% on room air. Laboratory studies were done. WBCs were 15,800 with a left shift on differential. Hemoglobin 9.7, hematocrit 31.4. Sodium 141, potassium 4.4, chloride 106, carbon dioxide less than 7. Anion gap 32.4, BUN 16, creatinine 1.3, glucose 415, magnesium 1.5. Total bilirubin 1.9. Alkaline phosphatase 145. BNP was 168, albumin 2.8. Amylase 30, lipase 14. She was treated for DKA and put on an insulin drip, and given fluids. A blood gas was drawn several hours after her admission to the . . Her pCO2 was 10, pO2 was 121, bicarb 3.9 with a pH of 7.21. Urine was unremarkable. Urine drug screen was negative. After she had been in the Emergency Room for about 11 hours, her ketones were negative and she was taken off of her bicarb drip. Blood cultures were also drawn. Chest x-ray showed borderline cardiomegaly with silvia congestive heart failure and lungs with no confluent infiltrate. I was called for admission to the hospital. It is to be noted that her medical history was obtained from the Emergency Room as well as her EMR and from a friend. PAST MEDICAL HISTORY: 1. Type 1 diabetes mellitus diagnosed in 1971. 2. Anemia. 3. Prolific diabetic retinopathy. 4. Hypertension. 5. Diabetic neuropathy. 6. Tachycardia. PAST SURGICAL HISTORY: 1. Ankle reconstruction surgery. 2. Amputation of the first toe of the left foot. 3. Removal of the macular membrane of the left eye. 4. Left eye vitrectomy. 5. section. OUTPATIENT MEDICATIONS: 1. Ferrous sulfate. 2. Hydrocodone. 3. Glargine insulin. 4. Lisinopril. 5. Zofran. 6. Ranitidine. ALLERGIES: PENICILLIN. SOCIAL HISTORY: She lives in [place]. She is . She has 1 child. There is no record of smoking, ETOH or illicit drug use. REVIEW OF SYSTEMS: Unable to obtain due to the patient's status. PHYSICAL EXAMINATION: VITAL SIGNS: Temperature 98.5, heart rate 108, blood pressure 144/75, respiratory rate 20, O2 sat 98% on room air. GENERAL: This is a 48 year-old female patient who is lying in her hospital bed. She looks to be in respiratory distress. She also looks to be acutely ill. She does say incomprehensible phrases and occasionally answers a simple yes or no question appropriately only infrequently. HEENT: She is blind in her left eye. Oropharynx is clear.. NECK: Supple without mass. RESPIRATORY: A few scattered rales, diminished at the bases. She is slightly tachypneic. CHEST: There is equal rise and fall of the chest with inspiration and expiration. CARDIOVASCULAR: Tachycardic rate, normal rhythm. Sinus tachycardia on the cafeteria monitor. GASTROINTESTINAL: Abdomen is soft, nondistended, non-tender. She does have anasarca over her entire body. EXTREMITIES: Have +2 pitting edema to all 4 extremities. She is missing the first digit of the left foot. NEUROLOGIC: She is awake. She is lethargic. LABORATORY: Subsequent blood gas drawn after admission on the floor showed a pCO2 of 35, pO2 of 80, bicarb of 20.7, pH of 7.39. Her O2 sat was 95.3%. Blood sugars have run from 129 to 314. Sodium has run between 142 and 143, potassium was initially low at 3.4 and is now up to 4.4 and just recently 3.7. Preliminary blood cultures are negative to date. All other labs and films have been reviewed via the EMR. ASSESSMENT: 1. Anasarca secondary to volume overload. 2. Diabetic ketoacidosis that has resolved for now, but she continues to have recurrent problems. She has had 2 recent admissions for DKA in a type 1 diabetic with poor medical compliance. 3. Osteomyelitis of the right ankle was treated with Daptomycin and Merrem as an outpatient being followed by Dr. Moyer, Infectious Diseases. 4. Acute delirium with encephalopathy secondary to volume overload, infectious disease process and poor medical compliance. 5. Leukocytosis secondary to osteomyelitis. 6. Metabolic acidosis. 7. Diabetes mellitus type 1 on insulin. 8. Diabetic neuropathy with a left great toe amputation. 9. Diabetic retinopathy. She is blind in her left eye. PLAN: Today, we have admitted the patient to the hospital. We have done every 4 hour BMPs with magnesium to monitor her electrolytes. I spoke with Dr. Godwin, medical transcription in [place], and he recommended that she be put on 25 grams of albumin followed by 2 mg of Bumex every 8 hours times 3 doses, as well as a 10 mg dose of Zaroxolyn and I could call him in the morning. At this point she has diuresed almost 6 liters and has become more alert. She is actually answering questions appropriately. I will continue her labs as currently ordered until in the morning. At that time after I speak with Dr. Godwin will modify her lab orders. She may still need to be sent to [facility] for ultra filtration, but at this point she is responding to the current treatment. I spoke with Dr. Moyer as well and she recommended that the patient be continued on her Merrem, but to discontinue the Daptomycin and see if her mental functioning improved. At this point she is acutely ill and she still may need to be transferred to [facility]. Will continue to monitor closely and follow as needed. Dr. Yang is the collaborating physician available for consultation. #[id number] MTDD
[2018-07-01] MEDS ORDERED: POTASSIUM CHLORIDE 20 MEQ TAB PO ONE (09:24)
[2018-07-01] MEDS ORDERED: SODIUM CHLORIDE 0.9% (FLUSH) 10 ML SYG IV PRN (09:57)
[2018-07-01] MEDS ORDERED: LEVALBUTEROL NEBS 1.25 MG/3 ML VIAL NEB PRN (09:57)
[2018-07-01] MEDS ORDERED: IV SET AND CAP CHANGE INJ INJ SCH (10:00)
[2018-07-01] MEDS ORDERED: GLUCAGON INJ 1 MG VIAL SUBCU PRN (10:30)
[2018-07-01] MEDS ORDERED: DEXTROSE 50% 25 GM/50 ML SYG IV PRN (10:30)
[2018-07-01] MEDS ORDERED: ALBUMIN 50 ML IVPB ONE ×3 (10:54→17:49)
[2018-07-01] MEDS: ALBUMIN 25 GM in PREMIX BOTTLE 2 BOTTLE IVPB SCH ×2 (11:06→18:09)
[2018-07-01] MEDS ORDERED: KCL 20MEQ/WATER FOR INJ 100ML 20 MEQ in PREMIX BAG 1 BAG IVPB ONE (12:01)
[2018-07-01] MEDS ORDERED: KCL 20MEQ/WATER FOR INJ 100ML 100 ML IVPB ONE (12:04)
[2018-07-01] MEDS ORDERED: FLUCONAZOLE IV 100 ML IVPB ONE (12:19)
[2018-07-01] MEDS ORDERED: SODIUM CHL 0.9% 50ML MIN-BAG+ 50 ML IVPB ONE ×3 (12:20→19:46)
[2018-07-01] MEDS ORDERED: MEROPENEM 1 GM VIAL IVPB ONE ×3 (12:21→19:47)
[2018-07-01] MEDS: INSULIN LISPRO 100 UNITS/ML PEN SUBCU SCH ×3 (12:25→20:09)
[2018-07-01] MEDS: MEROPENEM 1 GM in SODIUM CHL 0.9% 50ML MIN-BAG+ 50 ML IVPB SCH ×2 (12:32→18:24)
[2018-07-01] MEDS: BUMETANIDE 0.25 MG/ML VIAL IV SCH ×2 (13:30→20:04)
[2018-07-01] MEDS: FLUCONAZOLE IV 200 MG in PREMIX BAG 1 BAG IVPB SCH (13:34)
[2018-07-01] MEDS: ONDANSETRON INJ 4 MG/2 ML VIAL IV PRN (16:58)
[2018-07-01] MEDS: SODIUM CHLORIDE 0.45% 1000ML 1,000 ML IVS PRN (16:59)
[2018-07-01] MEDS ORDERED: ALBUMIN 12.5 GM/50 ML IVPB ONE (17:49)
[2018-07-01] MEDS ORDERED: ALBUMIN 100 ML IVPB ONE (19:46)
[2018-07-01] MEDS: SODIUM CHLORIDE 0.9% (FLUSH) 10 ML SYG IV SCH (20:05)
[2018-07-02] MEDS: INSULIN LISPRO 100 UNITS/ML PEN SUBCU SCH ×6 (00:58→21:45)
[2018-07-02] MEDS: ALBUMIN 25 GM in PREMIX BOTTLE 2 BOTTLE IVPB SCH (02:00)
[2018-07-02] MEDS: MEROPENEM 1 GM in SODIUM CHL 0.9% 50ML MIN-BAG+ 50 ML IVPB SCH ×3 (03:51→18:35)
[2018-07-02] MEDS: BUMETANIDE 0.25 MG/ML VIAL IV SCH (04:48)
[2018-07-02] MEDS ORDERED: SODIUM CHL 0.9% 50ML MIN-BAG+ 50 ML IVPB ONE ×3 (07:50→19:42)
[2018-07-02] MEDS ORDERED: FLUCONAZOLE IV 100 ML IVPB ONE (07:50)
[2018-07-02] MEDS ORDERED: metOLazone 2.5 MG TAB PO ONE ×2 (07:50→11:30)
[2018-07-02] MEDS ORDERED: MEROPENEM 1 GM VIAL IVPB ONE ×3 (07:51→19:43)
[2018-07-02] MEDS ORDERED: MAGNESIUM SULFATE PREMIX 2GM 2 GM in PREMIX BAG 1 BAG IVPB ONE (09:37)
[2018-07-02] MEDS ORDERED: POTASSIUM CHLORIDE 20 MEQ TAB PO ONE (09:38)
[2018-07-02] MEDS ORDERED: MAGNESIUM SULFATE PREMIX 2GM 50 ML IVPB ONE (09:45)
[2018-07-02] MEDS: SODIUM CHLORIDE 0.9% (FLUSH) 10 ML SYG IV SCH ×2 (09:52→21:45)
[2018-07-02] MEDS: FLUCONAZOLE IV 200 MG in PREMIX BAG 1 BAG IVPB SCH (11:00)
[2018-07-02] MEDS: ONDANSETRON INJ 4 MG/2 ML VIAL IV PRN ×2 (13:58→19:53)
[2018-07-02] MEDS ORDERED: POTASSIUM CHLORIDE ELIXIR 20 MEQ/15 ML UD PO ONE (17:25)
[2018-07-02] MEDS: SODIUM CHLORIDE 0.45% 1000ML 1,000 ML IVS PRN (18:36)
--- NOTE | 2018-07-02 18:42 | PN ---
DATE: 07/02/18 SUPERVISING PHYSICIAN: Dakota Yang M.D. SUBJECTIVE: The patient is lying in bed. Today she is talkative and is able to answer questions. She still has a poor appetite and I have encouraged her to try to eat. She complains of constipation and abdominal pain. She says she has not had a bowel movement in weeks but she also has not eaten in weeks. Otherwise she does feel better. She feels better since all of her fluids have been pulled off, but she complains of being very weak. OBJECTIVE: VITAL SIGNS: Temperature 98.3, heart rate 105, blood pressure 134/68, respiratory rate 18, O2 sat 93% on room air. I's and O's show she has had 2080 mL in, output is 15,200 with a negative I and O of 13,120. RESPIRATORY: Essentially clear to auscultation bilaterally. CARDIAC: Regular rate and rhythm. GASTROINTESTINAL: Abdomen is soft. It is nondistended, non- tender. Bowel sounds are positive. EXTREMITIES: No cyanosis, clubbing, or edema. SKIN: The anasarca has mostly resolved. There is no edema noted on her body at this time. NEUROLOGIC: She is awake, alert and oriented to person and place. She is forgetful of the time just because she said she could not remember because she has been in bed so long. LABORATORY: WBCs have increased to 16,200, hemoglobin 9.3, hematocrit 28.5. She has a left shift on differential. Sodium 142, potassium 3, chloride 96, carbon dioxide 26, BUN 18, creatinine 0.95. Blood sugars are running between 231 and 379. Magnesium is 1.7. Total bilirubin is 1.8. Preliminary blood cultures show no growth after 24 hours. All other labs and films have been reviewed via the EMR. ASSESSMENT: 1. Anasarca secondary to volume overload. 2. Diabetic ketoacidosis that has resolved for now, but she continues to have recurrent problems. She has had 2 recent admissions for DKA in a type 1 diabetic with poor medical compliance. 3. Osteomyelitis of the right ankle was treated with Daptomycin and Merrem as an outpatient being followed by Dr. Moyer, Infectious Diseases. 4. Acute delirium with encephalopathy secondary to volume overload, infectious disease process and poor medical compliance. 5. Leukocytosis secondary to osteomyelitis. 6. Metabolic acidosis. 7. Diabetes mellitus type 1 on insulin. 8. Diabetic neuropathy with a left great toe amputation. 9. Diabetic retinopathy. She is blind in her left eye. PLAN: We will continue present supportive care. She will continue on her Merrem antibiotics and will call Dr. Moyer to decide how long her therapy is supposed to be. She diuresed over 15,000 mL in the last 24 hours, but the Bumex and albumin has been discontinued. She is alert but is not eating much, and she states that she will not eat much. I have given insulin correction. She will get her Humalog insulin per sliding scale prior to eating. I have ordered a correction after her eating for each 15 grams of carbohydrates she consumes. She is to get 1 unit of Humalog insulin for every 15 gms of carbs, after her meal. I have also ordered an abdominal x-ray due to her abdominal pain. She may need a dose of Milk of Magnesia. We have had Physical Therapy in her room. She is very weak and was only able to sit up on the side of the bed for a few hours, so will need to continue with physical therapy. She is fairly stabilized and she does have a bone scan at [facility] on Thursday. We have initiated an LTAC evaluation for her discharge to help with her strengthening and conditioning. I have ordered routine labs for in the morning. Will continue to monitor closely and follow as needed. #[id number] MTDD
--- NOTE | 2018-07-02 18:53 | RAD ---
EXAM DESCRIPTION: Abdomen 1 View CLINICAL HISTORY: 48 years Female abd pain COMPARISON: None TECHNIQUE: A single supine view of the abdomen is obtained. FINDINGS: There is no evidence of free air. The bowel gas pattern is nonobstructive with a moderate amount of fecal content throughout the ascending transverse and proximal descending colon and small amount in the rectum. There are no abnormal intra-abdominal calcifications. [] There is no organomegaly. The lung bases show no gross consolidation. [] There are no discernible acute osseous abnormalities or areas of osseous destruction/osteoblastic disease. [There are degenerative changes in the hip joints with marginal osteophytosis and symmetric mild joint space loss.] IMPRESSION: No acute intra-abdominal process. [] Electronically signed by: Guerda Farley MD 07/02/2018 6:50 PM ELECTRONICS MANU[employer]URER
[2018-07-03] MEDS: MEROPENEM 1 GM in SODIUM CHL 0.9% 50ML MIN-BAG+ 50 ML IVPB SCH ×2 (02:33→10:49)
[2018-07-03] MEDS: INSULIN LISPRO 100 UNITS/ML PEN SUBCU SCH ×2 (08:03→12:57)
[2018-07-03] MEDS: ONDANSETRON INJ 4 MG/2 ML VIAL IV PRN (08:23)
[2018-07-03] MEDS ORDERED: MEROPENEM 1 GM VIAL IVPB ONE (10:43)
[2018-07-03] MEDS ORDERED: SODIUM CHL 0.9% 50ML MIN-BAG+ 50 ML IVPB ONE (10:43)
[2018-07-03 10:49] VITALS: O2SAT 100
[2018-07-03] MEDS ORDERED: FLUCONAZOLE IV 100 ML IVPB ONE (12:29)
[2018-07-03] MEDS: FLUCONAZOLE IV 200 MG in PREMIX BAG 1 BAG IVPB SCH (12:36)
[2018-07-03] MEDS ORDERED: SODIUM CHLORIDE 0.9% 1000ML 1,000 ML ONE (13:03)
[2018-07-03] MEDS ORDERED: SODIUM CHLORIDE 0.9% 1000ML 1,000 ML IVS ONE (13:06)
[2018-07-03] MEDS: SODIUM CHLORIDE 0.9% (FLUSH) 10 ML SYG IV SCH (14:19)
[2018-07-03 14:31] VITALS: BP 99/57; TEMP 97.4
--- NOTE | 2018-07-05 09:29 | DS ---
SUPERVISING PHYSICIAN: Dakota Yang MD DISCHARGE DIAGNOSIS: 1. Hyperglycemia with elevated blood glucose over 600 on discharge with a CO2 of 17, most likely diabetic ketoacidosis. 2. Anasarca secondary to volume overload. 3. Diabetic ketoacidosis that has resolved for now, but she continues to have recurrent problems. She has had 2 recent admissions for diabetic ketoacidosis in a type 1 diabetic with poor medical compliance. 4. Osteomyelitis of the right ankle was treated with daptomycin and Merrem as an outpatient being followed by Dr. Moyer, Infectious Diseases. 5. Acute delirium with encephalopathy secondary to volume overload, infectious disease process and poor medical compliance. 6. Leukocytosis secondary to osteomyelitis. 7. Metabolic acidosis. 8. Diabetes mellitus, type, 1 on insulin. 9. Diabetic neuropathy with a left great toe amputation. 10. Diabetic retinopathy. She is blind in her left eye. HISTORY OF PRESENT ILLNESS: This is a 48-year-old female that came to the Emergency Room with significant delirium and anasarca. According to her , the delirium had been worse in the previous 6 days, but her mental status change started about one month ago. The patient was actually just released from [facility] about 6 days prior to her admission to the Emergency Room. She had been sent from [facility] Emergency Room due to altered mental status and diabetic ketoacidosis. She also had acute respiratory failure and was intubated. She has been diagnosed with osteomyelitis of the right ankle that is ongoing in nature and had been taking some daptomycin and Merrem as an outpatient. She has been followed by Dr. Moyer, Infectious Diseases doctor in [place]. Dr. Moyer saw her in the hospital and continued her antibiotics. She left the hospital against medical advice. She takes care of a 24-year-old child of hers that has special needs and her parents who were taking care of him said they could no longer care for him, so she left the hospital to care for her son. Her records indicate that they had Doppler ultrasounds due to swelling of the extremities. They were essentially negative. She also had an echocardiogram that was essentially negative. She had a head CT there without contrast. It was negative. Also, according to old records, she routinely has a heart rate in the low 100s to one- teens. She had some hallucinations and was accusing her family of trying to kill her, and according to a close friend as well as her , until approximately a month ago she took care of herself as well as her son who is in a wheelchair. Although they did admit that her diabetic control has been poor, she was diagnosed with type 1 diabetes in 1971. When she initially came to the Emergency Room, she was talking in incomprehensible sentences. They could get no history from her. Initially her vital signs showed temperature 97.3 with heart rate of 121, blood pressure 153/77, respiratory rate 22 and O2 sats were 90% on room air. Laboratory studies were done. WBCs were 15,800 with a left shift on differential. Hemoglobin 9.7, hematocrit 31.4. Sodium 141, potassium 4.4, chloride 106, carbon dioxide less than 7. Anion gap 32.4, BUN 16, creatinine 1.3, glucose 415, magnesium 1.5. Total bilirubin 1.9. Alkaline phosphatase 145. BNP was 168, albumin 2.8. Amylase 30, lipase 14. She was treated for DKA in the Emergency Room and put on an insulin drip and given fluids. A blood gas was drawn several hours after her admission to the [facility]. Her pCO2 was 10, pO2 was 121, bicarb 3.9 with a pH of 7.21. Urine was unremarkable. Urine drug screen was negative. She was taken off of her insulin drop. Blood cultures were also drawn. Chest x-ray showed borderline cardiomegaly with silvia congestive heart failure and lungs with no confluent infiltrate. She was admitted to the hospital. HOSPITAL COURSE: After admission, her BMPs and magnesium were followed every 4 hours to monitor her electrolytes and she was given magnesium and potassium replacement as needed. I spoke with Dr. Godwin, r d engineer in [place], and he recommended she be put on 25 grams of albumin followed by 2 mg of Bumex every 8 hours times 3 doses as well as 10 mg dose of Zaroxolyn and that I could him in the morning for any other questions. Initially after the first dose of Bumex and albumin, she diuresed approximately 6 liters. I also spoke with Dr. Moyer and she recommended the patient be continued on Merrem, but to discontinue the daptomycin to see if it improved her mental functioning. The next day, her vital signs stabilized. Her mental status improved to the point she could actually talk to you and let you know what was going on. Her lab stabilized as well except for occasionally having to do some potassium or magnesium supplementation. The first 24 hours, she diuresed over 15,000 mL. She did not have much of an appetite and we did order correction for her eating for each 15 grams of carbohydrates, she was to get 1 unit of Humalog insulin after her meal. She also complained of some constipation. Physical therapy was ordered. She was very weak and initially was only able to sit on the side of the bed. There were concerns that she was still at the hospital as [facility] called her that they had received the dye that Dr. Moyer had wanted to scan her bones on her right foot and that was to be done on Thursday. Dr. Moyer also consulted [facility] for referral for admission. Her status was improving until today and blood sugars continued to creep up in spite of no eating. They were up to 681. Her carbon dioxide was 17 and she had a bilirubin of 3.7. At that point, I called the hospitalist in [place] as well as Dr. Godwin and they accepted the patient in transfer and she will be discharged to [facility] in stable condition. LABORATORY: Sodium remained stable during her stay. It was 135 to 143. Initially, her chloride was slightly high up to 115, but came down to 96. She had several low potassiums and required replacement. Today, her potassium is 3.4 and she did get replacement. Her magnesium was low and she required magnesium replacement twice and today, her magnesium is 1.9. Her glucose was 393 in the Emergency Room. It came down to 185. When she was transferred to the Floor, it was 152. She received sliding scale insulin q.4h. and she ate very little. Her blood sugars then started climbing and started at 314 and came back down to 181. Since yesterday, they have continued to climb in spite of no eating. Today, they are 691. Her carbon dioxide was less than 7. We got it up to 23. Yesterday, it was 29 and today, it is back down to 17. Her total bilirubin when she was first admitted was 1.9. It went down to 0.5. It was then 1.8 and today, it is 3.7. The remainder of her liver enzymes are within normal limits. Her albumin was as low at 2.6 and is now 3.4. WBCs on admission was 15,800 and today are 13,200. She does have a left shift on differential. Her hemoglobin and hematocrit have stabilized at 10.4 and 32.5. RADIOLOGY: Initial chest x-ray was as per history of present illness. Her abdominal x-ray shows no acute intraabdominal processes. DISCHARGE PLAN: The patient will be discharged to [facility]. She is in poor condition. She is to resume her diabetic diet and to increase her activity as tolerated. It is recommended that she have physical therapy. She is to followup with [facility] after discharge. DISCHARGE MEDICATIONS: 1. Ranitidine. 2. Ferrous sulfate. 3. Ondansetron. 4. Lisinopril. 5. Glargine insulin. 6. Hydrocodone. 7. Meropenem. #[id number] [facility]
== END 2018-07-03 14:00 | disposition short-term general hospital (02) | DRG 638 ==
LOC: ER 18:11 → MS 07-01 07:53
PROVIDERS: ADMIT Nurse Practitioner Acute Care; ATTEND Nurse Practitioner Acute Care
DX: E10.10 Type 1 diabetes mellitus with ketoacidosis without coma (principal); F05 Delirium due to known physiological condition; G93.40 Encephalopathy, unspecified; M86.671 Other chronic osteomyelitis, right ankle and foot; E87.70 Fluid overload, unspecified; K59.00 Constipation, unspecified; E83.42 Hypomagnesemia; E10.51 Type 1 diabetes mellitus with diabetic peripheral angiopathy without gangrene; E10.319 Type 1 diabetes mellitus with unspecified diabetic retinopathy without macular edema; E10.69 Type 1 diabetes mellitus with other specified complication; E87.6 Hypokalemia; D64.9 Anemia, unspecified; I10 Essential (primary) hypertension; H54.62 Unqualified visual loss, left eye, normal vision right eye; Z89.412 Acquired absence of left great toe; Z79.891 Long term (current) use of opiate analgesic; Z79.4 Long term (current) use of insulin; Z88.0 Allergy status to penicillin; Z79.899 Other long term (current) drug therapy

== ENCOUNTER 2018-10-11 12:30 | Emergency (ER) | payer OTHER ==
[2018-10-11 12:48] VITALS: TEMP 97.8
[2018-10-11] MEDS ORDERED: SODIUM CHLORIDE 0.9% 1000ML 1,000 ML IVS ONE (12:50)
--- NOTE | 2018-10-11 13:13 | ED.PDOC ---
History of Present Illness - General Chief Complaint: General Stated Complaint: PCP sent for hypotension Time Seen by Provider: 10/11/18 12:39 Source: patient Exam Limitations: no limitations - History of Present Illness Initial Comments: pT SENT OVER FROM pcp FOR HYPOTENSION EVALUATION Timing/Duration: unsure Severity: moderate Improving Factors: nothing Worsening Factors: nothing Associated Symptoms: denies symptoms Allergies/Adverse Reactions: Allergies Penicillins Allergy (Intermediate, Verified 07/01/18 07:34) Home Medications: Ambulatory Orders HYDROcodone 5MG/APAP 325MG [[place] 5/325] 1 ea PO .Q8 PRN 07/01/18 Lisinopril [Prinivil] 5 mg PO DAILY 07/01/18 Buspirone HCl 5 mg PO TID 09/29/18 Doxycycline Hyclate 100 mg PO BID 09/29/18 Famotidine [Pepcid Tab] 20 mg PO BID 09/29/18 Ferrous Sulfate 325 mg PO BID 09/29/18 Insulin Glargine [Basaglar Kwikpen] 7 unit SC BID 09/29/18 Mirtazapine [Remeron] 15 mg PO BEDTIME 09/29/18 Modafinil 200 mg PO DAILY 09/29/18 Potassium Chloride [Potassium Chloride ER] 10 meq PO DAILY 09/29/18 Quetiapine Fumarate 50 mg PO TID 09/29/18 Review of Systems - Review of Systems Constitutional: Denies: chills, diaphoresis, fever, weakness EENTM: States: no symptoms reported Respiratory: States: no symptoms reported Cardiology: Denies: chest pain, edema, syncope Gastrointestinal/Abdominal: Denies: abdominal pain, diarrhea, nausea Genitourinary: States: no symptoms reported Musculoskeletal: States: no symptoms reported Skin: States: no symptoms reported Neurological: States: no symptoms reported Endocrine: States: no symptoms reported Past Medical History (General) - Patient Medical History Hx Seizures: No Hx Stroke: No Hx of COPD: Yes Hx Congestive Heart Failure: No Hx Hypertension: Yes Hx Thyroid Disease: No Hx Diabetes: Yes - since 2 years old Hx Gastroesophageal Reflux: Yes Hx MRSA: - Foot 2010; Foot 2011 MRSA Source:: Wound Surgical History: other - Vaccination History Hx Tetanus, Diphtheria Vaccination: - unknown Hx Influenza Vaccination: - unknown Hx Pneumococcal Vaccination: No - Social History Hx Tobacco Use: Yes Hx Alcohol Use: No Hx Depression: No Hx Physical Abuse: No Hx Emotional Abuse: No - Female History Patient : No Family Medical History - Family History Mother Family History: Unknown Hx Cardiac Disease: Yes - dad Hx Family Diabetes: Yes - multiple family members Hx Family Cancer: Yes - dad-lungs Physical Exam - Physical Exam General Appearance: Alert, Comfortable Eye Exam: right normal, left abnormal pupil - old vitrectomy Ears, Nose, Throat: hearing grossly normal, normal ENT inspection Neck: non-tender, full range of motion Respiratory: lungs clear, normal breath sounds, no respiratory distress Cardiovascular/Chest: no edema, tachycardia Gastrointestinal/Abdominal: normal bowel sounds, non tender, soft Extremity: normal range of motion, non-tender, normal inspection, no pedal edema Neurologic: motor scooter mechanic II-XII nml as tested, alert, oriented x 3 Skin Exam: normal color, warm/dry Progress - EKG/XRAY/CT EKG: Sinus, Tachy, no ST T wave changes Comments: rate 106, OR 122, QRS 72 Departure - Departure Clinical Impression: Hypovolemia due to dehydration, Hyperglycemia due to type 1 diabetes mellitus Disposition: Discharge to Home or Self Care Condition: Fair Departure Forms: ED Discharge - Pt. Copy, Patient Portal Self Enrollment Referrals: Bita Veloz CONTROL PANEL ASSEMBLER [Primary Care Provider] - 1-2 Weeks Home Medications: Ambulatory Orders HYDROcodone 5MG/APAP 325MG [[place] 5/325] 1 ea PO .Q8 PRN 07/01/18 Lisinopril [Prinivil] 5 mg PO DAILY 07/01/18 Buspirone HCl 5 mg PO TID 09/29/18 Doxycycline Hyclate 100 mg PO BID 09/29/18 Famotidine [Pepcid Tab] 20 mg PO BID 09/29/18 Ferrous Sulfate 325 mg PO BID 09/29/18 Insulin Glargine [Basaglar Kwikpen] 7 unit SC BID 09/29/18 Mirtazapine [Remeron] 15 mg PO BEDTIME 09/29/18 Modafinil 200 mg PO DAILY 09/29/18 Potassium Chloride [Potassium Chloride ER] 10 meq PO DAILY 09/29/18 Quetiapine Fumarate 50 mg PO TID 09/29/18
--- NOTE | 2018-10-11 14:07 | RAD ---
Procedure: XR CHEST 1 VIEW Exam Date: 10/11/2018 Ordering Provider: Duke Lynch Clinical Indication: low BP Comparison: 06/30/2018 Findings: Cardiomediastinal silhouette is within normal limits. No focal lung consolidation. No pleural effusion. No pneumothorax. No acute osseous abnormality. Impression: 1. No acute abnormality in the chest. Electronically signed by: Scottie Washburn MD 10/11/2018 2:05 PM CDT
[2018-10-11 15:44] VITALS: BP 116/62; O2SAT 98
== END 2018-10-11 15:50 | disposition home or self-care (01) ==
LOC: ER 12:30
DX: E86.1 Hypovolemia (principal); E86.0 Dehydration; E10.65 Type 1 diabetes mellitus with hyperglycemia; R00.0 Tachycardia, unspecified; J44.9 Chronic obstructive pulmonary disease, unspecified; I10 Essential (primary) hypertension; K21.9 Gastro-esophageal reflux disease without esophagitis; Z87.891 Personal history of nicotine dependence; Z79.899 Other long term (current) drug therapy; Z79.4 Long term (current) use of insulin; Z88.0 Allergy status to penicillin
CPT/HCPCS: 36415; 36416; 71045; 80053; 81001; 82948; 83605; 85025; 87086; 93005; J7030

== ENCOUNTER → 2018-10-11 | Outpatient (CLI) | payer OTHER | LOC: YCFC.O 15:21 | PROVIDERS: ATTEND Nurse Practitioner Family | DX: E83.52 Hypercalcemia (principal) ==

== ENCOUNTER 2018-11-02 17:14 | Emergency (ER) | payer OTHER ==
[2018-11-02] MEDS ORDERED: DEXTROSE 10% 1000ML 1,000 ML IVS ONE (17:15)
[2018-11-02] MEDS ORDERED: DEXTROSE 50% 25 GM/50 ML SYG IV ONE ×2 (17:21→17:31)
[2018-11-02] MEDS ORDERED: SODIUM CHLORIDE 0.9% 1000ML 0 ML ONE (17:25)
[2018-11-02] MEDS ORDERED: DEXTROSE 10% 1000ML 1,000 ML IVS PRN (17:27)
--- NOTE | 2018-11-02 17:45 | RAD ---
EXAM DESCRIPTION: Chest,1 View CLINICAL HISTORY: altered LOC/hypoglycemia COMPARISON: October 11, 2018. FINDINGS: There is mild bilateral pulmonary edema. No definite focal consolidation. Heart size is normal. No pleural effusion. No pneumothorax. IMPRESSION: Mild pulmonary edema. Otherwise unremarkable. Electronically signed by: Markus Rajput 11/02/2018 5:43 PM CDT
--- NOTE | 2018-11-02 17:47 | ED.PDOC ---
History of Present Illness - General Chief Complaint: Diabetic Complaint Stated Complaint: Low blood sugar Time Seen by Provider: 11/02/18 17:22 Source: patient, family Exam Limitations: clinical condition - History of Present Illness Initial Comments: patient is brought in unresponsive by her . Patient has been having problems with her diabetes mellitus type 1 since she went into the hospital in May. In May she had osteomyelitis of her right ankle and was in the hospital until September 17. I made attempts she was released and then subsequently had a right hip fracture, stayed in the hospital for 6 more days and then was sent home. Her family states that since she's been home her blood sugars have been in the 2 to 400s and been very difficult to control. However, 2 days ago she began having hypoglycemia first thing in the morning with blood sugars in the 30s. She had been decreasing her Basaglar from 30 to 28 and then last night 24. However, this morning her BS was still 38 and despite 2 normal meals she had another low blood sugar prior to arrival of 38. She was not able to take anything in by mouth and became quickly nonresponsive. Patient did eat a normal breakfast and a normal lunch. She took 14 units of Humalog at 130 with lunch. She has otherwise been in her normal usual health and denies fever, chills, cough, cold symptoms. She has no constipation or dysuria. She has no chest pain or shortness of breath. After arrival she was given glucagon and after IV access D50 and she become alert and responsive immediately. She currently is cold but denies other symptoms. Timing/Duration: 1/2 hour Severity: severe Improving Factors: medication - in ER Worsening Factors: nothing Associated Symptoms: denies symptoms Allergies/Adverse Reactions: Allergies Penicillins Allergy (Intermediate, Verified 07/01/18 07:34) Home Medications: Ambulatory Orders HYDROcodone 5MG/APAP 325MG [[place] 5/325] 1 ea PO .Q8 PRN 07/01/18 Lisinopril [Prinivil] 5 mg PO DAILY 07/01/18 Buspirone HCl 5 mg PO TID 09/29/18 Doxycycline Hyclate 100 mg PO BID 09/29/18 Famotidine [Pepcid Tab] 20 mg PO BID 09/29/18 Ferrous Sulfate 325 mg PO BID 09/29/18 Insulin Glargine [Basaglar Kwikpen] 7 unit SC BID 09/29/18 Mirtazapine [Remeron] 15 mg PO BEDTIME 09/29/18 Modafinil 200 mg PO DAILY 09/29/18 Potassium Chloride [Potassium Chloride ER] 10 meq PO DAILY 09/29/18 Quetiapine Fumarate 50 mg PO TID 09/29/18 Glucagon Inj 1 mg IM ONCE #1 pack 11/02/18 Review of Systems - Review of Systems Constitutional: States: diaphoresis, weakness, other - altered LOC EENTM: States: blurred vision - loss of vision on the left eye chronically Respiratory: States: no symptoms reported. Denies: cough, short of breath Cardiology: States: no symptoms reported. Denies: chest pain, edema, palpitations Gastrointestinal/Abdominal: States: no symptoms reported. Denies: abdominal pain, constipation, diarrhea, nausea Genitourinary: States: no symptoms reported Musculoskeletal: States: no symptoms reported Past Medical History (General) - Patient Medical History Hx Seizures: No Hx Stroke: No Hx of COPD: Yes Hx Congestive Heart Failure: No Hx Hypertension: Yes Hx Thyroid Disease: No Hx Diabetes: Yes - since 2 years old Hx Gastroesophageal Reflux: Yes Hx MRSA: - Foot 2010; Foot 2011 MRSA Source:: Wound - Vaccination History Hx Tetanus, Diphtheria Vaccination: - unknown Hx Influenza Vaccination: - unknown Hx Pneumococcal Vaccination: No - Social History Hx Tobacco Use: Yes Hx Alcohol Use: No Hx Depression: No Hx Physical Abuse: No Hx Emotional Abuse: No - Female History Patient : No Family Medical History - Family History Mother Family History: Unknown Hx Cardiac Disease: Yes - dad Hx Family Diabetes: Yes - multiple family members Hx Family Cancer: Yes - dad-lungs Physical Exam - Physical Exam General Appearance: Frail, Ill Appearing Eye Exam: right normal, left abnormal pupil, bilateral other - s/p cataract removal in the L with pupil post operative Ears, Nose, Throat: hearing grossly normal, normal ENT inspection, normal pharynx Neck: non-tender, full range of motion, supple, normal inspection Respiratory: chest non-tender, lungs clear, normal breath sounds, no respiratory distress Cardiovascular/Chest: normal peripheral pulses, regular rate, rhythm, no edema, no gallop, no JVD, no murmur Peripheral Pulses: radial,right: 2+, radial,left: 2+ Gastrointestinal/Abdominal: normal bowel sounds, non tender, soft Back Exam: normal inspection Extremity: other - decreased ROM on L with ankle in brace and s/p hip replacement in September Neurologic: loom cleaner II-XII nml as tested, no motor/sensory deficits, alert Skin Exam: diaphoresis Lymphatic: no adenopathy Progress - Progress Progress: 11/02/18 20:34 patient is doing good and eating without difficulty. Labs have been stable with no more hypoglycemia for the past several hours off of IV glucose. Will have her go home. May take half of her normal baseline insulin if she has another meal and call MD in am. Return to ER for low BS, altered LOC - Results/Orders Results/Orders: 11/02/18 17:27 Dextrose 10% 1000ML [D10W 1000ml] 1,000 ml IVS .QD 11/02/18 17:30 EKG STAT 11/02/18 17:50 BLOOD CULTURE Stat 11/02/18 20:30 FSBS [GLUCOSE, FINGER STICK] Stat Laboratory Results WBC 12.9 K/mm3 (4.8-10.8) H 11/02/18 17:21 RBC 3.14 M/mm3 (4.20-5.40) L 11/02/18 17:21 Hgb 10.0 gm/dL (12.0-16.0) L 11/02/18 17:21 Hct 30.4 % (36.0-47.0) L 11/02/18 17:21 MCV 96.6 fl (81.0-99.0) 11/02/18 17:21 MCH 31.8 pg (27.0-31.0) H 11/02/18 17:21 MCHC 32.9 g/dL (33.0-37.0) L 11/02/18 17:21 RDW 14.0 % (11.5-14.5) 11/02/18 17:21 Plt Count 398 K/mm3 (130-400) 11/02/18 17:21 MPV 6.6 fl (7.40-10.4) L 11/02/18 17:21 Absolute Neuts (auto) 6.00 K/uL (1.8-6.8) 11/02/18 17:21 Absolute Lymphs (auto) 5.40 K/uL (1.0-3.4) H 11/02/18 17:21 Absolute Monos (auto) 0.90 K/uL (0.2-0.8) H 11/02/18 17:21 Absolute Eos (auto) 0.40 K/uL (0.0-0.4) 11/02/18 17:21 Absolute Basos (auto) 0.10 K/uL (0.0-0.1) 11/02/18 17:21 Neutrophils % 46.6 % (42.0-78.0) 11/02/18 17:21 Lymphocytes % 41.7 % (20.0-50.0) 11/02/18 17:21 Monocytes % 7.4 % (2.0-9.0) 11/02/18 17:21 Eosinophils % 3.4 % (1.0-5.0) 11/02/18 17:21 Basophils % 0.9 % (0.0-2.0) 11/02/18 17:21 Sodium 142 mmol/L (135-145) 11/02/18 17:21 Potassium 3.6 mmol/L (3.6-5.0) 11/02/18 17:21 Chloride 108 mmol/L (101-111) 11/02/18 17:21 Carbon Dioxide 26 mmol/L (21-31) 11/02/18 17:21 Anion Gap 11.6 (12-18) L 11/02/18 17:21 BUN 21 mg/dL (7-18) H 11/02/18 17:21 Creatinine 0.72 mg/dL (0.6-1.3) 11/02/18 17:21 BUN/Creatinine Ratio 29.2 (10-20) H 11/02/18 17:21 POC Glucose 184 mg/dL (70-105) H 11/02/18 20:07 Random Glucose 14 mg/dL (70-105) L* 11/02/18 17:21 Serum Osmolality 281.4 mOsm/L (275-295) 11/02/18 17:21 Lactic Acid 1.0 mmol/L (0.5-2.2) 11/02/18 17:21 Calcium 11.0 mg/dL (8.4-10.2) H 11/02/18 17:21 Total Bilirubin 0.4 mg/dL (0.2-1.0) 11/02/18 17:21 AST 22 IU/L (10-42) 11/02/18 17:21 ALT 15 IU/L (10-60) 11/02/18 17:21 Alkaline Phosphatase 121 IU/L (42-121) 11/02/18 17:21 Creatine Kinase 28 IU/L (26-140) 11/02/18 17:21 CK-MB (CK-2) 0.7 ng/mL (0.0-4.4) 11/02/18 17:21 CK-MB (CK-2) % Not Reportable 11/02/18 17:21 Troponin I < 0.02 ng/mL (0.01-0.05) 11/02/18 17:21 Serum Total Protein 7.1 gm/dL (6.4-8.2) 11/02/18 17:21 Albumin 3.9 g/dl (3.2-5.5) 11/02/18 17:21 Globulin 3.2 gm/dL (2.3-3.5) 11/02/18 17:21 Albumin/Globulin Ratio 1.2 (1.1-1.9) 11/02/18 17:21 Urine Color Yellow (Yellow) 11/02/18 17:22 Urine Appearance Clear (Clear) 11/02/18 17:22 Urine pH 5.5 (4.5-7.8) 11/02/18 17:22 Ur Specific [place] 1.025 (1.005-1.030) 11/02/18 17:22 Urine Protein Trace mg/dL 11/02/18 17:22 Urine Glucose (UA) 500 mg/dL (Negative) H 11/02/18 17:22 Urine Ketones Negative mg/dL (NEGATIVE) 11/02/18 17:22 Urine Blood Negative (Negative) 11/02/18 17:22 Urine Nitrite Negative 11/02/18 17:22 Urine Bilirubin Negative (NEGATIVE) 11/02/18 17:22 Urine Urobilinogen 0.2 mg/dL (0.2-1.0) 11/02/18 17:22 Ur Leukocyte Esterase Negative (Negative) 11/02/18 17:22 Urine RBC 0 /hpf 11/02/18 17:22 Urine WBC 0 /hpf 11/02/18 17:22 Ur Epithelial Cells 3-5 /hpf 11/02/18 17:22 Urine Bacteria 1+ 11/02/18 17:22 Urine Mucus Small 11/02/18 17:22 Departure - Departure Clinical Impression: Hypoglycemia Disposition: Discharge to Home or Self Care Condition: Good Departure Forms: ED Discharge - Pt. Copy, Patient Portal Self Enrollment Instructions: DI for Diabetes Type 2 Referrals: Bita Veloz, CIVIL [employer]S INVESTIGATOR [Primary Care Provider] - 1-2 Weeks Prescriptions: Glucagon Inj 1 mg IM ONCE #1 pack Home Medications: Ambulatory Orders HYDROcodone 5MG/APAP 325MG [[place] 5/325] 1 ea PO .Q8 PRN 07/01/18 Lisinopril [Prinivil] 5 mg PO DAILY 07/01/18 Buspirone HCl 5 mg PO TID 09/29/18 Doxycycline Hyclate 100 mg PO BID 09/29/18 Famotidine [Pepcid Tab] 20 mg PO BID 09/29/18 Ferrous Sulfate 325 mg PO BID 09/29/18 Insulin Glargine [Basaglar Kwikpen] 7 unit SC BID 09/29/18 Mirtazapine [Remeron] 15 mg PO BEDTIME 09/29/18 Modafinil 200 mg PO DAILY 09/29/18 Potassium Chloride [Potassium Chloride ER] 10 meq PO DAILY 09/29/18 Quetiapine Fumarate 50 mg PO TID 09/29/18 Glucagon Inj 1 mg IM ONCE #1 pack 11/02/18 Additional Instructions: May take half of her normal baseline insulin if she has another meal and call MD in am. Return to ER for low BS, altered LOC
[2018-11-02] MEDS ORDERED: GLUCAGON INJ 1 MG VIAL IM ONE (17:53)
[2018-11-02] MEDS ORDERED: SODIUM CHLORIDE 0.9% 1000ML 1,000 ML IVS ONE (19:02)
[2018-11-02 20:07] VITALS: O2SAT 100
[2018-11-02 21:04] VITALS: BP 147/84; TEMP 96.5
== END 2018-11-02 20:50 | disposition home or self-care (01) ==
LOC: ER 17:14
DX: E10.649 Type 1 diabetes mellitus with hypoglycemia without coma (principal); J44.9 Chronic obstructive pulmonary disease, unspecified; I10 Essential (primary) hypertension; K21.9 Gastro-esophageal reflux disease without esophagitis; Z87.891 Personal history of nicotine dependence; Z79.4 Long term (current) use of insulin; Z79.899 Other long term (current) drug therapy; Z88.0 Allergy status to penicillin
CPT/HCPCS: 36415; 36416; 71045; 80053; 81001; 82550; 82553; 82948; 83605; 84484; 85025; 87040; 93005; J1610; J7030; J7799

== ENCOUNTER → 2018-11-18 | Outpatient (CLI) | payer OTHER | LOC: RESP 09:54 | PROVIDERS: ATTEND Internal Medicine Endocrinology, Diabetes & Metabolism | DX: I10 Essential (primary) hypertension (principal); Z79.4 Long term (current) use of insulin ==

== ENCOUNTER 2019-08-12 11:22 | Emergency (ER) | payer OTHER ==
[2019-08-12 11:41] VITALS: O2SAT 97
--- NOTE | 2019-08-12 12:08 | RAD ---
1 radiographic chest. 2. Radiographs of the Abdomen. Indication: hypoglycemia, confusion, unresponsive Comparison: July 02, 2018 Impression: Articular the limits of normal. Interstitial markings mildly prominent and may reflect mild interstitial edema, chronic scarring, or atypical infection. This however appears similar to the prior. No overt consolidation, pleural effusion, or pneumothorax. No free air. Moderate constipation noted without findings of small bowel obstruction. No abnormal calcifications. Prior ORIF of the right femoral neck fracture. Osteopenia. If this is a new finding, DEXA scan recommended as well as evaluation for possible osteoporosis treatment. Electronically signed by: Levon Hoang MD 08/12/2019 12:06 PM CDT
[2019-08-12] MEDS: SODIUM CHLORIDE 0.9% 1000ML 1,000 ML IVS ONE (12:44)
[2019-08-12] MEDS ORDERED: NEOMYCIN-BACITRACIN-POLYMYXIN 0.9 GM UD TOP ONE (13:10)
[2019-08-12] MEDS ORDERED: cefTRIAXone SODIUM 1 GM VIAL ONE (13:23)
[2019-08-12] MEDS ORDERED: SODIUM CHL 0.9% 50ML MIN-BAG+ 50 ML IVPB ONE (13:24)
[2019-08-12] MEDS: cefTRIAXone SODIUM 1 GM in SODIUM CHL 0.9% 50ML MIN-BAG+ 50 ML IVPB ONE (13:27)
--- NOTE | 2019-08-12 13:48 | ED.PDOC ---
History of Present Illness - General Chief Complaint: Diabetic Complaint Stated Complaint: Low blood sugar, AMS Time Seen by Provider: 08/12/19 11:26 Source: patient Exam Limitations: no limitations - History of Present Illness Initial Comments: The patient is a 49-year-old female presented emergency room secondary toHypoglycemia. EMS was called out due to the patient being found unresponsive. She received an amp of D50 and was started on D10 by them. Her last known normal was around 130 this morning. The patient is still little confused upon arrival here and reports being very cold. Temperature is low at around 96. No obvious acute trauma. The patient does have multiple chronic bilateral lower extremity ulcers and deformities related to her diabetes. Timing/Duration: unsure Severity: severe Improving Factors: nothing Worsening Factors: nothing Associated Symptoms: loss of appetite, malaise Allergies/Adverse Reactions: Allergies Penicillins Allergy (Intermediate, Verified 08/12/19 11:42) Home Medications: Ambulatory Orders HYDROcodone 5MG/APAP 325MG [[place] 5/325] 1 ea PO .Q8 PRN 07/01/18 Lisinopril [Prinivil] 5 mg PO DAILY 07/01/18 Buspirone HCl [Buspirone Hydrochloride] 5 mg PO TID 09/29/18 Doxycycline Hyclate 100 mg PO BID 09/29/18 Famotidine [Pepcid Tab] 20 mg PO BID 09/29/18 Ferrous Sulfate 325 mg PO BID 09/29/18 Insulin Glargine [Basaglar Kwikpen] 7 unit SC BID 09/29/18 Mirtazapine [Remeron] 15 mg PO BEDTIME 09/29/18 Modafinil 200 mg PO DAILY 09/29/18 Potassium Chloride [Potassium Chloride ER] 10 meq PO DAILY 09/29/18 Quetiapine Fumarate 50 mg PO TID 09/29/18 Glucagon Inj 1 mg IM ONCE #1 pack 11/02/18 Ciprofloxacin [Cipro] 500 mg PO BID #10 tab 08/12/19 Review of Systems - Review of Systems Constitutional: States: malaise, weakness - Generalized EENTM: States: no symptoms reported Respiratory: States: no symptoms reported Cardiology: States: no symptoms reported Gastrointestinal/Abdominal: States: no symptoms reported Genitourinary: States: no symptoms reported Musculoskeletal: States: no symptoms reported Skin: States: see HPI Neurological: States: no symptoms reported, see HPI Endocrine: States: no symptoms reported All other Systems: No Change from Baseline Past Medical History (General) - Patient Medical History Hx Seizures: No Hx Stroke: No Hx of COPD: No Hx Cardiac Disorders: No Hx Congestive Heart Failure: No Hx Hypertension: Yes Hx Thyroid Disease: No Hx Diabetes: Yes Hx Gastroesophageal Reflux: Yes Hx Cancer: No Hx MRSA: - Foot 2010; Foot 2011 MRSA Source:: Wound Surgical History: other - Vaccination History Hx Tetanus, Diphtheria Vaccination: - unknown Hx Influenza Vaccination: - unknown Hx Pneumococcal Vaccination: No - Social History Hx Tobacco Use: No Hx Alcohol Use: No Hx Substance Use: No Hx Substance Use Treatment: No Hx Depression: No Hx Physical Abuse: No Hx Emotional Abuse: No - Female History Patient is a Female of Child Bearing Age (10 -59 yrs old): Yes Patient : No - Denies Family Medical History - Family History Mother Family History: Unknown Hx Cardiac Disease: Yes - dad Hx Family Diabetes: Yes - multiple family members Hx Family Cancer: Yes - dad-lungs Physical Exam - Physical Exam General Appearance: Alert, No apparent distress Eye Exam: bilateral normal Ears, Nose, Throat: hearing grossly normal, normal pharynx Neck: non-tender, supple Respiratory: lungs clear, normal breath sounds, no respiratory distress, no acc essory muscle use Cardiovascular/Chest: normal peripheral pulses, regular rate, rhythm, no edema Peripheral Pulses: radial,right: 2+, radial,left: 2+ Gastrointestinal/Abdominal: normal bowel sounds, non tender, soft Rectal Exam: deferred Back Exam: no CVA tenderness, no vertebral tenderness Extremity: normal range of motion, non-tender, no pedal edema, other - The patient has obvious peripheral vascular disease. She has numerous chronic deformities to bilateral lower extremities. A very soiled brace and dressing was removed from the right lower extremity. She does have numerous small ulcerations under the dressings. The wounds actually look better than I would have expected given the soiled state of her clothes. Neurologic: fiscal analyst II-XII nml as tested, alert, oriented x 3, other - Chronic peripheral neuropathy Skin Exam: other - Numerous small ulcerations to bilateral lower extremities but do appear to be healing. Comments: Vital Signs - 24 hr 08/12/19 08/12/19 11:25 11:27 Temperature 96 F L Pulse Rate [ 88 88 Pulse ox] Respiratory 20 20 Rate Blood Pressure 150/77 [L brachial] O2 Sat by Pulse 97 Oximetry Progress - Progress Progress: 08/12/19 13:51 The patient is a 49-year-old female presented emergency room due to altered mental status related to hypoglycemia. This has been corrected. The patient also had mild dehydration and received a liter of IV fluids. She also had mild hypothermia likely due to being unconscious for a while and exposed. Also the patient was placed on a Jessica hugger which has corrected her temperature issues. Additionally the patient does have what appears to be a mild cystitis. She received a dose of Rocephin here and will be placed on ciprofloxacin for the next 5 days. Urine will be cultured. Blood sugars appear to have stabilized. She does need to maintain a very regular diabetic and eating regimen to prevent future hypoglycemic episodes. The patient's lower extremity ulcers have been cleaned and dressed as well. Follow-up with primary care doctor next week. Car eful monitoring of blood sugars. ER warnings are given. [email or web address] [email or web address] [phone] - Results/Orders Results/Orders: Acute abdominal series shows chronic interstitial markings, constipation, previous surgery and osteopenia. EKG showed normal sinus rhythm at 85 bpm mild right axis deviation. Normal R wave progression. No ST segment or T wave changes indicative of acute ischemia. Normal QT interval. 08/12/19 11:30 EKG STAT Laboratory Results - last 24 hr 08/12/19 08/12/19 08/12/19 11:45 11:45 11:45 WBC 7.2 RBC 3.71 L Hgb 9.7 L Hct 30.5 L MCV 82.2 MCH 26.1 L MCHC 31.8 L RDW 16.4 H Plt Count 515 H MPV 6.1 L Absolute Neuts (auto) 5.50 Absolute Lymphs (auto) 1.20 Absolute Monos (auto) 0.40 Absolute Eos (auto) 0.10 Absolute Basos (auto) 0.10 Neutrophils % 75.7 Lymphocytes % 16.7 L Monocytes % 5.0 Eosinophils % 1.4 Basophils % 1.2 PT INR PTT (SP) Sodium 139 Potassium 4.4 Chloride 106 Carbon Dioxide 25 Anion Gap 12.4 BUN 20 H Creatinine 0.74 BUN/Creatinine Ratio 27.0 H POC Glucose Random Glucose 178 H Serum Osmolality 284.6 Lactic Acid Calcium 10.1 Magnesium 2.1 Total Bilirubin 0.6 AST 18 ALT 13 Alkaline Phosphatase 129 H Creatine Kinase 48 CK-MB (CK-2) 1.1 CK-MB (CK-2) % Not Reportable Troponin I < 0.02 B-Natriuretic Peptide 109.0 H Serum Total Protein 7.9 Albumin 3.3 Globulin 4.6 H Albumin/Globulin Ratio 0.7 L Amylase 61 Lipase 24 TSH 3.20 Serum HCG, Qual Urine Color Urine Appearance Urine pH Ur Specific [place] Urine Protein Urine Glucose (UA) Urine Ketones Urine Blood Urine Nitrite Urine Bilirubin Urine Urobilinogen Ur Leukocyte Esterase Urine RBC Urine WBC Ur Epithelial Cells Amorphous Sediment Urine Bacteria Urine HCG, Qual Urine Opiates Screen Urine Barbiturates Ur Phencyclidine Scrn U Amphetamin/Meth Scrn U Benzodiazepines Scrn U Cocaine Metab Screen U Cannabinoids Screen Ethyl Alcohol < 5.40 08/12/19 08/12/19 08/12/19 11:45 11:45 12:35 WBC RBC Hgb Hct MCV MCH MCHC RDW Plt Count MPV Absolute Neuts (auto) Absolute Lymphs (auto) Absolute Monos (auto) Absolute Eos (auto) Absolute Basos (auto) Neutrophils % Lymphocytes % Monocytes % Eosinophils % Basophils % PT 12.4 H INR 1.25 H PTT (SP) 32.2 H Sodium Potassium Chloride Carbon Dioxide Anion Gap BUN Creatinine BUN/Creatinine Ratio POC Glucose Random Glucose Serum Osmolality Lactic Acid 0.8 Calcium Magnesium Total Bilirubin AST ALT Alkaline Phosphatase Creatine Kinase CK-MB (CK-2) CK-MB (CK-2) % Troponin I B-Natriuretic Peptide Serum Total Protein Albumin Globulin Albumin/Globulin Ratio Amylase Lipase TSH Serum HCG, Qual Negative Urine Color Urine Appearance Urine pH Ur Specific [place] Urine Protein Urine Glucose (UA) Urine Ketones Urine Blood Urine Nitrite Urine Bilirubin Urine Urobilinogen Ur Leukocyte Esterase Urine RBC Urine WBC Ur Epithelial Cells Amorphous Sediment Urine Bacteria Urine HCG, Qual Cancelled Urine Opiates Screen Urine Barbiturates Ur Phencyclidine Scrn U Amphetamin/Meth Scrn U Benzodiazepines Scrn U Cocaine Metab Screen U Cannabinoids Screen Ethyl Alcohol 08/12/19 08/12/19 08/12/19 12:50 12:50 13:21 WBC RBC Hgb Hct MCV MCH MCHC RDW Plt Count MPV Absolute Neuts (auto) Absolute Lymphs (auto) Absolute Monos (auto) Absolute Eos (auto) Absolute Basos (auto) Neutrophils % Lymphocytes % Monocytes % Eosinophils % Basophils % PT INR PTT (SP) Sodium Potassium Chloride Carbon Dioxide Anion Gap BUN Creatinine BUN/Creatinine Ratio POC Glucose 179 H Random Glucose Serum Osmolality Lactic Acid Calcium Magnesium Total Bilirubin AST ALT Alkaline Phosphatase Creatine Kinase CK-MB (CK-2) CK-MB (CK-2) % Troponin I B-Natriuretic Peptide Serum Total Protein Albumin Globulin Albumin/Globulin Ratio Amylase Lipase TSH Serum HCG, Qual Urine Color Yellow Urine Appearance Cloudy Urine pH 5.5 Ur Specific [place] 1.025 Urine Protein 100 H Urine Glucose (UA) 100 H Urine Ketones Negative Urine Blood Trace-lysed H Urine Nitrite Negative Urine Bilirubin Negative Urine Urobilinogen 0.2 Ur Leukocyte Esterase Negative Urine RBC 1-3 Urine WBC 5-10 H Ur Epithelial Cells 0-1 Amorphous Sediment 2+ Urine Bacteria 4+ H Urine HCG, Qual Urine Opiates Screen Negative Urine Barbiturates Negative Ur Phencyclidine Scrn Negative U Amphetamin/Meth Scrn Negative U Benzodiazepines Scrn Negative U Cocaine Metab Screen Negative U Cannabinoids Screen Negative Ethyl Alcohol Departure - Departure Clinical Impression: Hypoglycemic encephalopathy, Hypothermia due to cold environment, Dehydration, Cystitis Diabetic foot ulcers Qualifiers: Diabetic foot ulcer location: unspecified part of foot Diabetes mellitus type: type 1 Laterality: unspecified laterality Non-pressure ulcer stage: unspecified non-pressure ulcer stage Qualified Code(s): E10.621 - Type 1 diabetes mellitus with foot ulcer; L97.509 - Non-pressure chronic ulcer of other part of unspecified foot with unspecified severity Disposition: Discharge to Home or Self Care Condition: Fair Departure Forms: ED Discharge - Pt. Copy, Patient Portal Self Enrollment Instructions: DI for Diabetes Type 1 -- Adult, Low Blood Sugar, Adult (DC), Urinary Tract Infection, Adult (DC) Diet: diabetic diet Activity: increase activity as tolerated Referrals: Bita Veloz NP [Primary Care Provider] - 1-2 Weeks Prescriptions: Ciprofloxacin [Cipro] 500 mg PO BID #10 tab Home Medications: Ambulatory Orders HYDROcodone 5MG/APAP 325MG [[place] 5/325] 1 ea PO .Q8 PRN 07/01/18 Lisinopril [Prinivil] 5 mg PO DAILY 07/01/18 Buspirone HCl [Buspirone Hydrochloride] 5 mg PO TID 09/29/18 Doxycycline Hyclate 100 mg PO BID 09/29/18 Famotidine [Pepcid Tab] 20 mg PO BID 09/29/18 Ferrous Sulfate 325 mg PO BID 09/29/18 Insulin Glargine [Basaglar Kwikpen] 7 unit SC BID 09/29/18 Mirtazapine [Remeron] 15 mg PO BEDTIME 09/29/18 Modafinil 200 mg PO DAILY 09/29/18 Potassium Chloride [Potassium Chloride ER] 10 meq PO DAILY 09/29/18 Quetiapine Fumarate 50 mg PO TID 09/29/18 Glucagon Inj 1 mg IM ONCE #1 pack 11/02/18 Ciprofloxacin [Cipro] 500 mg PO BID #10 tab 08/12/19 Additional Instructions: The patient is a 49-year-old female presented emergency room due to altered mental status related to hypoglycemia. This has been corrected. The patient also had mild dehydration and received a liter of IV fluids. She also had mild hypothermia likely due to being unconscious for a while and exposed. Also the patient was placed on a Jessica hugger which has corrected her temperature issues. Additionally the patient does have what appears to be a mild cystitis. She received a dose of Rocephin here and will be placed on ciprofloxacin for the next 5 days. Urine will be cultured. Blood sugars appear to have stabilized. She does need to maintain a very regular diabetic and eating regimen to prevent future hypoglycemic episodes. The patient's lower extremity ulcers have been cleaned and dressed as well. Follow-up with primary care doctor next week. Careful monitoring of blood sugars. ER warnings are given.
[2019-08-12 14:24] VITALS: BP 139/81; TEMP 96.8
== END 2019-08-12 14:23 | disposition home or self-care (01) ==
LOC: ER 11:22
DX: E10.649 Type 1 diabetes mellitus with hypoglycemia without coma (principal); T68.XXXA Hypothermia, initial encounter; X31.XXXA Exposure to excessive natural cold, initial encounter; E86.0 Dehydration; N30.90 Cystitis, unspecified without hematuria; E10.621 Type 1 diabetes mellitus with foot ulcer; L97.509 Non-pressure chronic ulcer of other part of unspecified foot with unspecified severity; I10 Essential (primary) hypertension; Z79.4 Long term (current) use of insulin
CPT/HCPCS: 36415; 74019; 80053; 80307; 80320; 81001; 82150; 82550; 82553; 82948; 83605; 83690; 83735; 83880; 84443; 84484; 84703; 85025; 85610; 85730; 87077; 87086; 87186; 87502; 93005; J0696; J7030; J7050

== ENCOUNTER 2019-08-22 21:25 | Emergency (ER) | payer OTHER ==
[2019-08-22] MEDS ORDERED: SODIUM CHLORIDE 0.9% (FLUSH) 10 ML SYG IV PRN (21:40)
[2019-08-22] MEDS ORDERED: DEXTROSE 50% 25 GM/50 ML SYG IV ONE (21:41)
[2019-08-22] MEDS ORDERED: SODIUM CHLORIDE 0.9% 1000ML 1,000 ML IVS ONE (21:44)
--- NOTE | 2019-08-22 22:02 | ED.PDOC ---
History of Present Illness - General Chief Complaint: Diabetic Complaint Stated Complaint: altered LOC due to low BS Time Seen by Provider: 08/22/19 21:39 Source: patient, EMS - History of Present Illness Initial Comments: 49 yo female with PMH of uncontrolled/labile DM1 who is bib EMS from home for cc of altered mental status. Last known to be normal this morning. Just REGROOVER her boyfriend came home and found her on the ground unresponsive and foaming at the mouth. Called EMS - pt in same state on scene. Unable to place IV so glucagon 1 mg IM given and transported to ED. Pt with improving mental status en route - awake and talking/answering questions on arrival but confused and shivering and complaining of being cold. Initial temp of 92 F (otic temp). Initial D-stick <40 on glucometer. PIV able to be placed and 1 amp D50 given. EMS reports pt frequently takes her insulin and then does not eat and becomes severely hypoglycemic, seen at this ED many times for same issue. Pt is confused, unsure when her last dose of insulin was and how much she took. Reports she ate a peanut butter sandwich today but unsure at what time. Denies any suicidal ideation or attempts. Denies any drug abuse. Denies any other acute complaints. Allergies/Adverse Reactions: Allergies Penicillins Allergy (Intermediate, Verified 08/22/19 21:48) Home Medications: Ambulatory Orders HYDROcodone 5MG/APAP 325MG [[place] 5/325] 1 ea PO .Q8 PRN 07/01/18 Lisinopril [Prinivil] 5 mg PO DAILY 07/01/18 Buspirone HCl [Buspirone Hydrochloride] 5 mg PO TID 09/29/18 Doxycycline Hyclate 100 mg PO BID 09/29/18 Famotidine [Pepcid Tab] 20 mg PO BID 09/29/18 Ferrous Sulfate 325 mg PO BID 09/29/18 Insulin Glargine [Basaglar Kwikpen] 7 unit SC BID 09/29/18 Mirtazapine [Remeron] 15 mg PO BEDTIME 09/29/18 Modafinil 200 mg PO DAILY 09/29/18 Potassium Chloride [Potassium Chloride ER] 10 meq PO DAILY 09/29/18 Quetiapine Fumarate 50 mg PO TID 09/29/18 Glucagon Inj 1 mg IM ONCE #1 pack 11/02/18 Ciprofloxacin [Cipro] 500 mg PO BID #10 tab 08/12/19 Review of Systems - Review of Systems Review of Systems: 08/22/19 22:02 as per HPI All other Systems: Reviewed and Negative Past Medical History (General) - Patient Medical History Hx Seizures: No Hx Stroke: No Hx Dementia: No Hx Asthma: No Hx of COPD: No Hx Cardiac Disorders: No Hx Congestive Heart Failure: No Hx Hypertension: Yes Hx Thyroid Disease: No Hx Diabetes: Yes Hx Gastroesophageal Reflux: Yes Hx Renal Disease: No Hx Cancer: No Hx of HIV: No Hx Hepatitis C: No Hx MRSA: - Foot 2010; Foot 2011 MRSA Source:: Wound - Vaccination History Hx Tetanus, Diphtheria Vaccination: - unknown Hx Influenza Vaccination: - unknown Hx Pneumococcal Vaccination: No - Social History Hx Tobacco Use: No Hx Alcohol Use: No Hx Substance Use: No Hx Substance Use Treatment: No Hx Depression: No Hx Physical Abuse: No Hx Emotional Abuse: No - Female History Patient : No - Denies Family Medical History - Family History Mother Family History: Unknown Hx Cardiac Disease: Yes - dad Hx Family Diabetes: Yes - multiple family members Hx Family Cancer: Yes - dad-lungs Physical Exam - Physical Exam General Appearance: Alert, Anxious, Other - confused Eye Exam: bilateral normal Ears, Nose, Throat: hearing grossly normal, normal ENT inspection, normal pharynx Neck: non-tender, full range of motion, supple, normal inspection Respiratory: lungs clear, normal breath sounds, no respiratory distress, no accessory muscle use Cardiovascular/Chest: normal peripheral pulses, regular rate, rhythm, no edema, no gallop, no JVD, no murmur Peripheral Pulses: radial,right: 2+, radial,left: 2+ Gastrointestinal/Abdominal: non tender, soft, no organomegaly Back Exam: normal inspection, no CVA tenderness, no vertebral tenderness Extremity: normal range of motion, non-tender, no pedal edema, no calf tenderness 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 Consider also sepsis, PNA, UTI, diabetic foot infection, ACS, other metabolic derangement, other -Jessica hugger placed for rewarming, warm blankets, D50 1 amp, q15 min glucose checks and temp checks -stat labs, lactate, cpk, CXR -1 L NS bolus 08/22/19 23:14 -Pt is sitting up in bed, no longer shivering. Feeling markedly better. Back to normal mental status. Her boyfriend is also now at bedside. Pt states she took 28 units of her basal insulin this morning, was doing well, last glucose check was 96 around 1 pm. Lied down to take a nap around 4 pm on the couch and does not recall what happened after that. Boyfriend states he got home around 7 and found pt lying on the couch shivering and unresponsive. Reports this is the 4th instance in the past 2 weeks and 2nd time to come to the ED. She currently doesn't have a PCP because she states she cannot afford it. Denies any other complaints. -Lab and nurses tried to stick patient >6 times but unable to draw blood. Pt refuses any further sticks despite my urging. Will monitor glucose checks for another 45 mins in ED and plan dispo. 08/23/19 00:22 -Repeat glucoses have remained stable. Pt remains stable, vitals stabilized. Eager to go home. -Advised lowering insulin dosage and dividing BID. F/u closely with PCP. Return warnings discussed at length. Jed Shirley MD Billing #[id number] 08/22/19 21:40 IV Care:Saline Lock per Protoc QSHIFT Telemetry .ONCE BASIC METABOLIC PANEL Stat CREATINE PHOSPHOKINASE Stat LACTIC ACID Stat URINE DRUG SCREEN, 7 ASSAY Routine CBC (AUTOMATED) W/AUTO DIFF Stat EKG Assessment ONCE Pulse Oximetry Assessment DAILY 08/22/19 21:44 TROPONIN-I Stat 08/22/19 21:45 EKG STAT 08/22/19 21:48 GLUCOSE,RANDOM Stat 08/23/19 09:00 Pulse Ox Daily Laboratory Results - last 24 hr 08/22/19 08/22/19 08/22/19 21:30 22:15 23:14 POC Glucose < 40 L* 164 H D 186 H 08/23/19 00:08 POC Glucose 172 H - EKG/XRAY/CT EKG: Sinus, Tachy - HR 100, no ST elevs or q waves, axis & intervals normal, compared to 08/12/19 EKG sinus tach is new but otherwise unchanged. XRAY: chest - no acute processes per my read Departure - Departure Clinical Impression: Hypoglycemic encephalopathy, Hypothermia due to cold environment Time of Disposition: 00:22 Disposition: Discharge to Home or Self Care Condition: Fair Departure Forms: ED Discharge - Pt. Copy, Patient Portal Self Enrollment Instructions: DI for Diabetes Type 1 -- Adult Diet: resume usual diet Activity: increase activity as tolerated Referrals: Bita Veloz NP [Primary Care Provider] - 1 Week Home Medications: Ambulatory Orders HYDROcodone 5MG/APAP 325MG [[place] 5/325] 1 ea PO .Q8 PRN 07/01/18 Lisinopril [Prinivil] 5 mg PO DAILY 07/01/18 Buspirone HCl [Buspirone Hydrochloride] 5 mg PO TID 09/29/18 Doxycycline Hyclate 100 mg PO BID 09/29/18 Famotidine [Pepcid Tab] 20 mg PO BID 09/29/18 Ferrous Sulfate 325 mg PO BID 09/29/18 Insulin Glargine [Basaglar Kwikpen] 7 unit SC BID 09/29/18 Mirtazapine [Remeron] 15 mg PO BEDTIME 09/29/18 Modafinil 200 mg PO DAILY 09/29/18 Potassium Chloride [Potassium Chloride ER] 10 meq PO DAILY 09/29/18 Quetiapine Fumarate 50 mg PO TID 09/29/18 Glucagon Inj 1 mg IM ONCE #1 pack 11/02/18 Ciprofloxacin [Cipro] 500 mg PO BID #10 tab 08/12/19 Additional Instructions: I suggest decreasing your total daily insulin dosage to 20 units and dividing it into 10 units in the morning and 10 units at night. Eat frequent meals every 4-5 hours throughout the day to prevent low blood sugars. If you feel your blood sugar is dropping, check the level with your glucometer and quickly eat a snack such as a candy bar or cookie with some juice. Recheck the blood sugar level. If your blood sugar remains below 60 and unable to increase with snacks at home, come to the ED. If you again become confused or unresponsive or do not feel safe getting here, call 911 so that EMS can come evaluate you. It is very important you follow up with your primary care doctor in next 5-7 days for repeat evaluation and to further discuss your appropriate medication regimen. Critical Care Note - Critical Care Note Total Time (mins): 30 Comments: Critical Care Time: Upon my evaluation, this patient had a high probability of life-threatening deterioration due to acute severe hypoglycemia, which required my direct attention, intervention, and management. I have provided 30 minutes of critical care time exclusive of separately billable procedures. My time included: direct patient care, review of labs and radiology, obtaining history from and counseling the patient and the family, documentation, and monitoring for potential decompensation.
--- NOTE | 2019-08-22 22:25 | RAD ---
EXAM DESCRIPTION: Chest,1 View CLINICAL HISTORY: 49 years Female altered mental status, hypoglycemia, hypothermia COMPARISON: 11/02/2018. FINDINGS: The cardiomediastinal silhouette appears unremarkable. No consolidating infiltrates or pleural effusions. No pneumothorax. IMPRESSION: No acute abnormality is identified. Electronically signed by: Micah Og MD 08/22/2019 10:24 PM CDT
[2019-08-23 00:04] VITALS: BP 145/75; O2SAT 99
[2019-08-23 00:41] VITALS: TEMP 96.7
== END 2019-08-23 00:41 | disposition home or self-care (01) ==
LOC: ER 21:25
DX: E11.649 Type 2 diabetes mellitus with hypoglycemia without coma (principal); R00.0 Tachycardia, unspecified; T68.XXXA Hypothermia, initial encounter; I10 Essential (primary) hypertension; Z79.4 Long term (current) use of insulin; Z79.899 Other long term (current) drug therapy; X31.XXXA Exposure to excessive natural cold, initial encounter; Y92.9 Unspecified place or not applicable
CPT/HCPCS: 36416; 71045; 82948; 93005; J7030

== ENCOUNTER 2019-09-16 15:52 | Emergency (ER) | payer OTHER ==
[2019-09-16] MEDS: SODIUM CHLORIDE 0.9% 1000ML 1,000 ML IVS ONE (16:27)
[2019-09-16] MEDS: DEXTROSE 50% 25 GM/50 ML SYG IV ONE (16:47)
--- NOTE | 2019-09-16 18:53 | ED.PDOC ---
History of Present Illness - General Chief Complaint: Diabetic Complaint Stated Complaint: Low BS, possibly too much insulin Time Seen by Provider: 09/16/19 16:03 Source: patient, RN notes reviewed, Vital Signs reviewed, EMS notes reviewed, family, EMS, old records Exam Limitations: no limitations - History of Present Illness Initial Comments: This is a 49-year-old female with longstanding history of insulin-dependent diabetes presenting via EMS for suspected hypoglycemia and altered mental status while she was shopping at [employer]. Patient was reportedly altered and sitting in her cart when EMS arrived. Initial D stick was less than 30, she was given 25 g of dextrose with improvement of blood sugar into the 110s. The patient had recently taken her insulin, but did not eat with it. She estimates she may have taken 25 units of her regular insulin accidentally. She denies any recent illness. No chest pain, no vomiting, no fever, no shortness of breath. Allergies/Adverse Reactions: Allergies Penicillins Allergy (Intermediate, Verified 09/16/19 16:12) Home Medications: Ambulatory Orders HYDROcodone 5MG/APAP 325MG [[place] 5/325] 1 ea PO .Q8 PRN 07/01/18 Lisinopril [Prinivil] 5 mg PO DAILY 07/01/18 Buspirone HCl [Buspirone Hydrochloride] 5 mg PO TID 09/29/18 Doxycycline Hyclate 100 mg PO BID 09/29/18 Famotidine [Pepcid Tab] 20 mg PO BID 09/29/18 Ferrous Sulfate 325 mg PO BID 09/29/18 Insulin Glargine [Basaglar Kwikpen] 7 unit SC BID 09/29/18 Mirtazapine [Remeron] 15 mg PO BEDTIME 09/29/18 Modafinil 200 mg PO DAILY 09/29/18 Potassium Chloride [Potassium Chloride ER] 10 meq PO DAILY 09/29/18 Quetiapine Fumarate 50 mg PO TID 09/29/18 Glucagon Inj 1 mg IM ONCE #1 pack 11/02/18 Ciprofloxacin [Cipro] 500 mg PO BID #10 tab 08/12/19 Review of Systems - Review of Systems Constitutional: Denies: chills, fever EENTM: Denies: nose pain, nose congestion Respiratory: Denies: orthopnea, short of breath Cardiology: Denies: chest pain, edema Gastrointestinal/Abdominal: Denies: constipation, diarrhea Genitourinary: Denies: dysuria, hematuria Musculoskeletal: Denies: joint pain, joint swelling, neck pain Skin: Denies: change in hair/nails, dryness, lesions Neurological: States: other - Confusion, resolved on arrival. Denies: headache, seizure, tingling, weakness Endocrine: States: other - Low blood sugar on EMS arrival Hematologic/Lymphatic: States: no symptoms reported Past Medical History (General) - Patient Medical History Hx Seizures: No Hx Stroke: No Hx Dementia: No Hx Asthma: No Hx of COPD: No Hx Cardiac Disorders: No Hx Congestive Heart Failure: No Hx Hypertension: Yes Hx Thyroid Disease: No Hx Diabetes: Yes Hx Gastroesophageal Reflux: Yes Hx Renal Disease: No Hx Cancer: No Hx of HIV: No Hx Hepatitis C: No Hx MRSA: - Foot 2010; Foot 2011 MRSA Source:: Wound Surgical History: other - Vaccination History Hx Tetanus, Diphtheria Vaccination: No Hx Influenza Vaccination: No Hx Pneumococcal Vaccination: No Immunizations Up to Date: No - Social History Hx Tobacco Use: Yes Hx Alcohol Use: No Hx Substance Use: No Hx Substance Use Treatment: No Hx Depression: No Hx Physical Abuse: No Hx Emotional Abuse: No - Female History Patient is a Female of Child Bearing Age (10 -59 yrs old): Yes Patient : No Family Medical History - Family History Mother Family History: Unknown Hx Cardiac Disease: Yes - dad Hx Family Diabetes: Yes - multiple family members Hx Family Cancer: Yes - dad-lungs Physical Exam - Physical Exam General Appearance: Alert, No apparent distress Eye Exam: left abnormal pupil - 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, no vision changes, patient states this is chronic and unchanged today Ears, Nose, Throat: normal ENT inspection Neck: non-tender, full range of motion, normal inspection Respiratory: chest non-tender, lungs clear, normal breath sounds, no respiratory distress Cardiovascular/Chest: normal peripheral pulses, regular rate, rhythm, no edema, no gallop, no JVD Gastrointestinal/Abdominal: non tender, soft Back Exam: normal inspection, no CVA tenderness, no vertebral tenderness Extremity: normal range of motion, no pedal edema, other - Right ankle in orthopedic brace Neurologic: no motor/sensory deficits, alert, normal mood/affect, oriented x 3 Skin Exam: normal color, warm/dry Progress - Results/Orders Results/Orders: Recheck. Most recent blood glucose downtrending from 110 t0 78. I explained my concern about possible need for additional glucose, but patient adamantly refuses to stay any longer in the hospital. She states she has a son at home with cerebral palsy that needs her. A stressed the importance of frequent blood sugar checks over the next 5 to 6 hours and to ensure that she eats a good meal tonight due to concern for possible insulin overdose. Strict warnings given to return the emergency room for changes in mental status, chest pain, shortness of breath, vomiting. Explained that she is welcome back to the emergency room at any time for any reason. All questions answered. MDM: Hypoglycemia, ACS, sepsis, insulin overdose Laboratory Tests 09/16/19 09/16/19 09/16/19 16:37 16:37 16:37 WBC 7.8 RBC 4.44 Hgb 11.8 L Hct 37.1 MCV 83.5 MCH 26.6 L MCHC 31.8 L RDW 18.1 H Plt Count 265 MPV 8.3 Absolute Neuts (auto) 3.30 Absolute Lymphs (auto) 3.60 H Absolute Monos (auto) 0.60 Absolute Eos (auto) 0.30 Absolute Basos (auto) 0.10 Neutrophils % 41.9 L Lymphocytes % 46.1 Monocytes % 7.3 Eosinophils % 3.9 Basophils % 0.8 Sodium 139 Potassium 3.3 L Chloride 111 Carbon Dioxide 21 Anion Gap 10.3 L BUN 25 H Creatinine 0.89 BUN/Creatinine Ratio 28.1 H POC Glucose < 40 L* Random Glucose 27 L* Serum Osmolality 278.0 Lactic Acid Calcium 10.7 H Total Bilirubin 0.5 AST 18 ALT 11 Alkaline Phosphatase 106 Troponin I Serum Total Protein 7.6 Albumin 3.8 Globulin 3.8 H Albumin/Globulin Ratio 1.0 L 09/16/19 09/16/19 09/16/19 16:37 16:37 16:49 WBC RBC Hgb Hct MCV MCH MCHC RDW Plt Count MPV Absolute Neuts (auto) Absolute Lymphs (auto) Absolute Monos (auto) Absolute Eos (auto) Absolute Basos (auto) Neutrophils % Lymphocytes % Monocytes % Eosinophils % Basophils % Sodium Potassium Chloride Carbon Dioxide Anion Gap BUN Creatinine BUN/Creatinine Ratio POC Glucose Random Glucose Cancelled Serum Osmolality Lactic Acid 1.8 Calcium Total Bilirubin AST ALT Alkaline Phosphatase Troponin I < 0.02 Serum Total Protein Albumin Globulin Albumin/Globulin Ratio 09/16/19 09/16/19 17:48 18:56 WBC RBC Hgb Hct MCV MCH MCHC RDW Plt Count MPV Absolute Neuts (auto) Absolute Lymphs (auto) Absolute Monos (auto) Absolute Eos (auto) Absolute Basos (auto) Neutrophils % Lymphocytes % Monocytes % Eosinophils % Basophils % Sodium Potassium Chloride Carbon Dioxide Anion Gap BUN Creatinine BUN/Creatinine Ratio POC Glucose 118 H D 72 Random Glucose Serum Osmolality Lactic Acid Calcium Total Bilirubin AST ALT Alkaline Phosphatase Troponin I Serum Total Protein Albumin Globulin Albumin/Globulin Ratio RICARDO COOPER DO [facility] #[id number] Departure - Departure Clinical Impression: Insulin overdose Qualifiers: Encounter type: initial encounter Injury intent: accidental or unintentional Qualified Code(s): T38.3X1A - Poisoning by insulin and oral hypoglycemic [antidiabetic] drugs, accidental (unintentional), initial encounter Type II diabetes mellitus 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 Copy, Patient Portal Self Enrollment Instructions: DI for Diabetes Type 2 Diet: resume usual diet Activity: increase activity as tolerated Referrals: Bita Veloz NP [Primary Care Provider] - 1-5 Days Home Medications: Ambulatory Orders HYDROcodone 5MG/APAP 325MG [[place] 5/325] 1 ea PO .Q8 PRN 07/01/18 Lisinopril [Prinivil] 5 mg PO DAILY 07/01/18 Buspirone HCl [Buspirone Hydrochloride] 5 mg PO TID 09/29/18 Doxycycline Hyclate 100 mg PO BID 09/29/18 Famotidine [Pepcid Tab] 20 mg PO BID 09/29/18 Ferrous Sulfate 325 mg PO BID 09/29/18 Insulin Glargine [Basaglar Kwikpen] 7 unit SC BID 09/29/18 Mirtazapine [Remeron] 15 mg PO BEDTIME 09/29/18 Modafinil 200 mg PO DAILY 09/29/18 Potassium Chloride [Potassium Chloride ER] 10 meq PO DAILY 09/29/18 Quetiapine Fumarate 50 mg PO TID 09/29/18 Glucagon Inj 1 mg IM ONCE #1 pack 11/02/18 Ciprofloxacin [Cipro] 500 mg PO BID #10 tab 08/12/19
[2019-09-16 19:06] VITALS: BP 155/74; TEMP 96.4; O2SAT 98
== END 2019-09-16 19:16 | disposition home or self-care (01) ==
LOC: ER 15:52
DX: T38.3X1A Poisoning by insulin and oral hypoglycemic [antidiabetic] drugs, accidental (unintentional), initial encounter (principal); E11.649 Type 2 diabetes mellitus with hypoglycemia without coma; I10 Essential (primary) hypertension; Z87.891 Personal history of nicotine dependence
CPT/HCPCS: 36416; 80053; 82948; 83605; 84484; 85025; 87040; 93005; J7030; J7799

== ENCOUNTER 2020-02-12 14:42 | Emergency (ER) | payer OTHER ==
[2020-02-12 15:14] VITALS: O2SAT 99
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
[2020-02-12 16:25] VITALS: BP 140/80; TEMP 96.9
== END 2020-02-12 16:12 | disposition home or self-care (01) ==
LOC: ER 14:42
DX: E11.649 Type 2 diabetes mellitus with hypoglycemia without coma (principal); T38.3X5A Adverse effect of insulin and oral hypoglycemic [antidiabetic] drugs, initial encounter; R55 Syncope and collapse; I10 Essential (primary) hypertension; K21.9 Gastro-esophageal reflux disease without esophagitis; Z79.4 Long term (current) use of insulin; Z79.899 Other long term (current) drug therapy; Z88.0 Allergy status to penicillin; Z87.891 Personal history of nicotine dependence

== ENCOUNTER → 2020-03-02 | Outpatient (CLI) | payer OTHER | LOC: LAB.O 14:22 | PROVIDERS: ATTEND Internal Medicine | DX: E10.69 Type 1 diabetes mellitus with other specified complication (principal); E83.52 Hypercalcemia; D64.9 Anemia, unspecified ==